=== PATIENT | male | born 1970 | race Caucasian/White ===

== ENCOUNTER 2016-10-05 23:14 | Inpatient (IN) | payer MEDICARE, OTHER ==
--- NOTE | ~2016-10-05 | HP ---
Unit #: [id number] #: [id number] Patient: DURGA HARO [id number] [place] [address] [id number] MR#: [id number] NAME: DURGA HARO ROOM: P185 Age: 46 Sex: M Admission Date: 10/05/2016 : 1970 Attending Physician: Angel Basurto M.D. Admitting Physician: Angel Basurto M.D. Primary Care Physician: Tia Caicedo A.P.R.N. HISTORY AND PHYSICAL HISTORY OF PRESENT ILLNESS Durga is a 46 year old admitted to [facility] because of his continued abuse of alcohol. He is detoxing. PAST MEDICAL HISTORY 1. Long history of alcohol abuse. 2. High blood pressure. 3. Diabetes mellitus. 4. History of withdrawal seizures. 5. GERD. PAST SURGICAL HISTORY Nothing reported. ALLERGIES No known drug allergies. SOCIAL HISTORY Smokes 1 pack per day. Drinks at least 3 pints to a fifth of liquor on a daily basis. Denies illicit drug use. FAMILY HISTORY Medically noncontributory. REVIEW OF SYSTEMS CONSTITUTIONAL: No fever or chills. HEENT: Denies any sore throat, ear pain or runny nose. CARDIOVASCULAR: Denies chest pain, irregular heart rhythm or palpitations. CHEST: Denies shortness of breath or cough. No hemoptysis. GASTROINTESTINAL: Denies nausea, vomiting, diarrhea or chronic constipation. ENDOCRINE: Denies history of increased thirst or urination. No recent significant weight loss or gain. GENITOURINARY: Denies dysuria, frequency, or hematuria. SKIN: Denies any rashes. HEMATOLOGIC: Denies history of increased bleeding or bruising. MUSCULOSKELETAL: Denies any hot, swollen joints. No generalized muscle pain. NEUROLOGIC: Denies problems with vision or speech. No frequent, severe headaches. No numbness, tingling or weakness in any extremities. Denies loss of bladder or bowel control. CURRENT MEDICATIONS Unit #: [id number] #: [id number] Patient: DURGA HARO 1. Detox protocol. 2. Zestril 10 mg daily. 3. Levemir 12 units q.h.s. 4. Seroquel 200 mg q.h.s. 5. Flexeril 5 mg b.i.d. 6. Lexapro 10 mg daily. 7. Neurontin 300 mg t.i.d. 8. Multivitamin 1 daily. 9. Nicotine patch 14 mg daily. PHYSICAL EXAMINATION GENERAL: Alert, well-nourished, in no apparent distress. VITAL SIGNS: Blood pressure 130/88, heart rate 80, respirations 16, temperature 98.6. WEIGHT: 205. HEIGHT: 6 feet 0 inches. SKIN: Warm and dry without rash or lesion. HEENT: Normocephalic. TMs not viewed. Oral and nasal passages clear. Conjunctivae clear. PERRLA. EOMs intact. NECK: Supple without lymphadenopathy or thyromegaly. HEART: Regular rate and rhythm without murmur. LUNGS: Clear. ABDOMEN: Soft, nontender. : Not done. EXTREMITIES: No evidence of cyanosis, clubbing or edema. Moves all without focal deficit. NEUROLOGICAL: Grossly within normal limits. Cranial Nerves: II: Visual perez are intact. III, IV AND : Extraocular movements are intact. Pupils are equal, round and reactive to light. V: Facial sensation is grossly normal. VII: Facial movements and expression are normal. VIII: Auditory acuity grossly intact. IX, X: Uvula is midline. Phonation is normal. XI: Patient shrugs shoulders and turns head normally. XII: Tongue protrudes in the midline. Sensory and Motor Function: Sensory and motor sensation is grossly normal. Motor: moves all extremities well. Coordination: Gait is normal. Deep Tendon Reflexes: Intact. IMPRESSION Psychiatric admission. RECOMMENDATIONS PSYCHIATRIC: Per psychiatrist. MEDICAL: See no contraindications to participate in facility's activities. MEDICAL PROGNOSIS Good. MEDICAL CONDITION Stable. Dictated by... Nadia Fischer P.A.-C. for Galo Pressley M.D. Unit #: [id number] #: [id number] Patient: DURGA HARO COLTON/hcencho TD: 10/07/2016 17:47 JOB #: [id number] HISTORY AND PHYSICAL X Nadia Fischer HISTORY AND PHYSICAL
--- NOTE | ~2016-10-05 | PN ---
Unit #: [id number] #: [id number] Patient: KEN HARO [id number] [facility] [address] [place] [address] [id number] I MR#: [id number] NAME: KEN HARO ROOM: [facility] Age: 46 Sex: M Admission Date: 10/05/2016 : 1970 Attending Physician: Angel Basurto M.D. Admitting Physician: Angel Basurto M.D. Primary Care Physician: Winston Cota PROGRESS NOTES DATE 10/10/2016 DISCUSSION The patient is calm and pleasant. He exhibits little in the way of signs or symptoms of withdrawal. Should he sustain progress, discharge will likely take place in the morning. He is thus far tolerating ReVia without complaint. Dictated by... Angel Basurto M.D. CB/carole TD: 10/10/2016 14:39 JOB #: [id number] TONY PROGRESS NOTES Page 1 of 1 X Angel Basurto MD PROGRESS NOTE
--- NOTE | ~2016-10-05 | PN ---
Unit #: [id number] #: [id number] Patient: KEN HARO [id number] [facility] [address] [place] [address] [id number] I MR#: [id number] NAME: KEN HARO ROOM: [facility] Age: 46 Sex: M Admission Date: 10/05/2016 : 1970 Attending Physician: Angel Basurto M.D. Admitting Physician: Angel Basurto M.D. Primary Care Physician: Winston Cota PROGRESS NOTES DATE 10/07/2016 DISCUSSION The patient continues to exhibit significant symptoms of alcohol withdrawal having exhibited a pulse of 118 and diastolic blood pressure of 109 and scoring a 10 on his CIWA at 12 noon today. We continue current treatment. Dictated by... Angel Basurto M.D. CB/chencho TD: 10/07/2016 15:24 JOB #: [id number] TONY PROGRESS NOTES X Angel Basurto MD PROGRESS NOTE
--- NOTE | ~2016-10-05 | PA ---
Unit #: [id number] #: [id number] Patient: KEN HARO [id number] [place] [address] [id number] I MR#: [id number] NAME: KEN HARO ROOM: [facility] Age: 46 Sex: M Admission Date: 10/05/2016 : 1970 Date of Assessment: 10/06/2016 Attending Physician: Angel Basurto M.D. Admitting Physician: Angel Basurto M.D. Primary Care Physician: Tia Caicedo A.P.R.N. PSYCHIATRIC ASSESSMENT IDENTIFYING INFORMATION The patient is a 46-year-old single white male well known to this physician from multiple previous admissions to this facility the last of which ended on 09/11/2016. The patient returns reporting recurrence of abuse of alcohol. CHIEF COMPLAINT None given. INFORMANT Patient, reliability is fair. HISTORY OF PRESENT ILLNESS The patient is a 46-year-old white male admitted after reporting that he has been consuming 4 pints of vodka on a daily basis. The patient's blood alcohol on admission was 0.348. The patient has a history of several previous admissions to this facility but has not complied with prescribed followup by intensive outpatient programming nor has he expressed interest in residential chemical dependence treatment. When seen today, the patient is sleeping soundly and cannot be aroused for interview. He has been placed on a routine detoxification protocol, and home medications have been restarted. For more complete history of present illness, please refer to previously dictated notes. PAST PSYCHIATRIC HISTORY Reviewed, no changes. PAST MEDICAL HISTORY Reviewed, no changes. PAST MEDICAL HISTORY Reviewed, no changes. MEDICATIONS Seroquel, gabapentin, Lexapro, and Levemir. ALLERGIES None. FAMILY HISTORY Reviewed, no changes. SOCIAL HISTORY Unit #: [id number] #: [id number] Patient: KEN HARO Reviewed, no changes. MENTAL STATUS EXAMINATION Examination at this time reveals the patient to be a soundly sleeping white male appearing his stated age. He cannot be aroused for interview. DIAGNOSTIC IMPRESSION 1. Alcohol use disorder. 2. Diabetes mellitus. 3. Hypertension. 4. History of pancreatitis. 5. History of alcohol withdrawal seizures. TREATMENT PLAN The patient remains hospitalized for safety and stabilization. Routine detoxification protocol has been ordered and suicide precautions are in place. The patient's home medications will be restarted. ESTIMATED LENGTH OF STAY 3 to 5 days. The followup will take place through the auspices of community mental health resources. Dictated by... Angel Basurto M.D. Tal TD: 10/07/2016 10:32 JOB #: [id number] PSYCHIATRIC ASSESSMENT X Angel Basurto MD X PSYCHIATRIC ASSESSMENT
--- NOTE | ~2016-10-05 | DS ---
Unit #: [id number] #: [id number] Patient: KEN HARO [id number] [place] [address] [id number] I MR#: [id number] NAME: KEN HARO ROOM: [facility] Age: 46 Sex: M Admission Date: 10/05/2016 : 1970 Discharge Date: 10/11/2016 Attending Physician: Angel Basurto M.D. Primary Care Physician: Tia Caicedo A.P.R.N. DISCHARGE SUMMARY REASON FOR ADMISSION The patient is a 46-year-old white male, admitted with increasing depression and alcohol abuse. HOSPITAL COURSE The patient was admitted to the [facility] and placed on routine detoxification protocol for alcohol. Home medications were continued and the patient was begun on ReVia 50 mg at h.s. given his wish to begin treatment with intramuscular depot naltrexone. The patient's detox was an uneventful one. He participated actively within therapeutic milieu and by 10/11/2016 was in bright spirits. He requested discharge on that date and it was so ordered. FINAL DIAGNOSES Alcohol use disorder; bipolar disorder, unspecified, most recent episode depressed; diabetes mellitus. DISPOSITION ON DISCHARGE The patient is discharged on the following medications; ReVia 50 mg at bedtime for alcohol craving, Levemir 12 units at bedtime for diabetic management, Seroquel 50 mg t.i.d. and 200 mg at h.s. for mood stabilization, Flexeril 5 mg b.i.d. for muscle relaxation, Zestril 10 mg once daily for hypertension, Lexapro 10 mg daily for depression, Neurontin 300 mg t.i.d. for anxiety. DISCHARGE INSTRUCTIONS No dietary or physical restrictions were placed upon the patient at the time of discharge. FOLLOWUP Followup will take place through the auspices of the chemical dependency intensive outpatient program provided by this facility and community mental health resources. PROGNOSIS The patient's prognosis is considered fair. Dictated by... Angel Basurto M.D. MARIA R/robbl Unit #: [id number] #: [id number] Patient: KEN HARO TD: 10/11/2016 23:11 JOB #: [id number] DISCHARGE SUMMARY Page 1 of 1 X Angel Basurto MD DISCHARGE SUMMARY
--- NOTE | ~2016-10-05 | PN ---
Unit #: [id number] #: [id number] Patient: KEN HARO [id number] [facility] [address] [place] [address] [id number] I MR#: [id number] NAME: KEN HARO ROOM: [facility] Age: 46 Sex: M Admission Date: 10/05/2016 : 1970 Attending Physician: Angel Basurto M.D. Admitting Physician: Angel Basurto M.D. Primary Care Physician: Winston Cota PROGRESS NOTES DATE 10/09/2016 DISCUSSION The patient offers no new complaints today. He is tolerating initiation of ReVia and hopes to begin withdrawal injections in the near future. We continue current treatment and expect the patient to be discharged within the next couple of days. Dictated by... Angel Basurto M.D. CB/rachael TD: 10/09/2016 18:11 JOB #: [id number] TONY PROGRESS NOTES Page 1 of 1 X Angel Basurto MD X PROGRESS NOTE
--- NOTE | ~2016-10-05 | CO ---
Unit #: [id number] #: [id number] Patient: KEN HARO [id number] [place] [address] [id number] I MR#: [id number] NAME: KEN HARO ROOM: [facility] Age: 46 Sex: M Admission Date: 10/05/2016 : 1970 Attending Physician: Angel Basurto M.D. Primary Care Physician: Tia Caicedo A.P.R.N. CONSULTATION REPORT REASON FOR CONSULT Evaluate insulin or to clarify insulin dosage. SUBJECTIVE "I've been diabetic for a long time. I take NovoLog sliding scale and Lantus 50 units daily." OBJECTIVE Vital signs within normal limits. Medications and labs reviewed. ASSESSMENT Insulin-dependent diabetes. No change needed in medication. PLAN Staff will contact Nadia Amado who clarified dosage of insulin yesterday at approximately 1700. They will contact her for further clarification if needed. Dictated by... Winston Rainey/chencho TD: 10/07/2016 18:56 JOB #: [id number] CONSULTATION REPORT X Swetha Day APR X CONSULTATION REPORT
--- NOTE | ~2016-10-05 | PN ---
Unit #: [id number] #: [id number] Patient: KEN HARO [id number] [facility] [address] [place] [address] [id number] MR#: [id number] NAME: KEN HARO ROOM: [facility] Age: 46 Sex: M Admission Date: 10/05/2016 : 1970 Attending Physician: Angel Basurto M.D. Admitting Physician: Angel Basurto M.D. Primary Care Physician: Winston Cota PROGRESS NOTES DATE 10/08/2016 DISCUSSION The patient is more active within the therapeutic milieu. He is today requesting initiation of naltrexone and we will begin ReVia 50 mg at h.s. as per his request. Dictated by... Angel Basurto M.D. CB/rachael TD: 10/08/2016 22:02 JOB #: [id number] TONY PROGRESS NOTES X Angel Basurto MD PROGRESS NOTE
[~2016-10-05 23:14] MED LIST: ALPRAZOLAM PO; ANXIETY MED; ATENOLOL PO; ATENOLOL50 MG PO; ATIVAN PO; ATIVAN0.5 MG PO; ATIVAN2 M1 PO; AUGMENTIN875 MG PO; BACTRIM DS TABL1 TA1 PO; BENTYL20 MG PO; BLOOD PRESSURE MED; BP MED; CARAFATE1 G PO; CELEXA PO; CLEOCIN HCL300 M1 PO; CLONIDINE PO; COLACE PO; DAKIN'S MODIF1000 ML EXT; DARVOCET-N 1001 TA2 PO; FAMOTIDINE; FAMOTIDINE PO; FLEXERIL PO; FLEXERIL10 MG PO; FOLIC ACID PO; HCTZ PO; HUMULOG INSULIN SQ; HYDROCODON-ACE1 EAC1 PO; HYDROCODONE-APA1 T41 PO; HYDROCODONE/TYLENOL PO; INSULIN FAST ACTING; K-DUR20 ME1 PO; KCL PO; KEFLEX500 M1 PO; KEFLEX500 MG PO; LAMICTAL25 MG PO; LANTUS INSULIN; LANTUS100 U/M1 SUBQ; LANTUS100 U/ML; LANTUS100 U/ML SUBQ; LEXAPRO PO; LIBRIUM25 M1 PO; LIBRIUM25 MG PO; LISINOPRIL PO; LISINOPRIL10 MG PO; LISINOPRIL5 MG PO; LOC PO; LORTAB 10/500 T1 TAB PO; LORTAB 5/500 TA1 TA1 PO; LORTAB 7.51 TAB PO; MEDROL DOSEPAK4 MG PO; METFORMIN HCL500 M1 PO; METFORMIN PO; METOPROLOL TAR25 MG PO; MILK OF MAGNESIA PO; MOTRIN400 MG PO; MULTI-VITAMIN1 TAB PO; NAPROSYN250 M1 PO; NASONEX17 GM; NEURONTIN PO; NEURONTIN300 MG PO; NORCO 10/325 TA1 TAB PO; NORFLEX100 M1 PO; NORVASC PO; NOVOLIN R100 UNITS/ INJ; PHENERGAN25 MG PO; PRILOSEC PO; PRILOSEC20 M1 PO; PRILOSEC40 MG PO; PRINIVIL40 MG PO; PROTONIX PO; PROZAC PO; REGLAN10 MG PO; RESTORIL15 MG PO; SEROQUEL25 MG PO; SUDAFED PO; TEMAZEPAM PO; THIAMINE HCL100 MG PO; TOPAMAX25 MG PO; TRICOR PO; ULTRAM PO; UNKNOWN MEDS; VICODIN 5/1 TAB 5/50 PO; VICODIN 5/500 T1 TAB PO; VOLTAREN75 MG PO; XANAX1 MG PO; ZANAFLEX4 M1 PO; ZANTAC150 MG PO; ZOLOFT PO; ZYRTEC PO; ZYVOX600 MG PO; [UNRECOGNIZED DRUG - REMARK]; oxycodone PO
== END 2016-10-11 14:35 | DRG 897 ==
LOC: P1E 23:14
PROC: HZ2ZZZZ Detoxification Services for Substance Abuse Treatment (ICD-10-PCS; principal; 2016-10-05)
DX: F10.20 Alcohol dependence, uncomplicated (principal); I10 Essential (primary) hypertension; E11.9 Type 2 diabetes mellitus without complications; F17.200 Nicotine dependence, unspecified, uncomplicated; Z79.4 Long term (current) use of insulin
CPT/HCPCS: 80307; 82947; 86592; 96372; 99285; G0480; J1815; J3486

== ENCOUNTER 2016-11-08 22:59 | Inpatient (IN) | payer MEDICARE, OTHER ==
--- NOTE | ~2016-11-08 | PN ---
Unit #: [id number] #: [id number] Patient: KEN HARO [id number] [facility] [address] [place] [address] [id number] I MR#: [id number] NAME: KEN HARO. ROOM: 82 Age: 46 Sex: M Admission Date: 11/08/2016 : 1970 Attending Physician: Angel Basurto M.D. Admitting Physician: Angel Basurto M.D. Primary Care Physician: Winston Cota PROGRESS NOTES DATE 11/12/2016 DISCUSSION The patient's detox continues uneventfully and he is expressing interest in participation in the intensive outpatient program once discharged. We will look to discharge the patient within the next couple of days if his detox continues uneventfully. Dictated by... Angel Basurto M.D. CB/jonathan TD: 11/12/2016 15:46 JOB #: [id number] TONY PROGRESS NOTES Page 1 of 1 X Angel Basurto MD X PROGRESS NOTE
--- NOTE | ~2016-11-08 | PA ---
Unit #: [id number] #: [id number] Patient: KEN HARO [id number] [place] [address] [id number] I MR#: [id number] NAME: KEN HARO. ROOM: [facility] Age: 46 Sex: M Admission Date: 11/08/2016 : 1970 Date of Assessment: 11/09/2016 Attending Physician: Angel Basurto M.D. Admitting Physician: Angel Basurto M.D. Primary Care Physician: Tia Caicedo A.P.R.N. PSYCHIATRIC ASSESSMENT IDENTIFYING INFORMATION The patient is a 46-year-old white male admitted to the [address] [place] [address] for alcohol detox. CHIEF COMPLAINT "I relapsed." INFORMANT(S) Patient, reliability is fair. HISTORY OF PRESENT ILLNESS The patient is a 46-year-old white male readmitted after once again relapsing on alcohol use. The patient had recently been participating in the intensive outpatient program but was discharged on 10/19/2016 after failing to show on several consecutive days. The patient reports that he had relapsed recently, and that this is crossing stress between him and his mother with whom he resides. The patient does report a history of withdrawal seizures. He does have a history of 2 previous suicide attempts per his report but denies current suicidal ideation. For more complete history of present illness, please refer to previously dictated notes. PAST PSYCHIATRIC HISTORY Reviewed, no changes. PAST MEDICAL HISTORY Reviewed, no changes. MEDICATIONS Seroquel, Neurontin, Lexapro, ReVia, Zestril, Flexeril, Levemir, and NovoLog. ALLERGIES None reported. FAMILY HISTORY Reviewed, no changes. SOCIAL HISTORY Reviewed, no changes. MENTAL STATUS EXAMINATION Examination at this time reveals the patient to be a well-developed well-nourished white male appearing stated age. He is in no apparent Unit #: [id number] #: [id number] Patient: KEN HARO physical distress at the time of examination. He is awake, alert, and oriented in all spheres. His mood is mildly dysphoric, his affect congruent. Speech is generally well-coherent. There are no gross deficits in memory or cognition noted. Intelligence is judged to be in the average range based on fund of knowledge. The patient is cooperative throughout the interview. He is currently denying suicidal or homicidal ideation or psychotic features. Judgment and insight appear to be reasonably intact. ASSETS AND LIABILITIES The patient's assets: Motivation for changes. Liabilities: Poor compliance for treatment. DIAGNOSTIC IMPRESSION 1. Alcohol use disorder. 2. Dysthymic disorder. 3. Diabetes mellitus. 4. Hypertension. TREATMENT PLAN The patient remains hospitalized for safety and stabilization. All prescribed home medications will be continued, and the patient will also be placed on routine detoxification protocol for alcohol as well as seizure precautions. ESTIMATED LENGTH OF STAY 3 to 5 days. Followup will take place through the auspices of community mental health resources. Dictated by... Angel Basurto M.D. MARIA R/carole TD: 11/09/2016 14:50 JOB #: [id number] PSYCHIATRIC ASSESSMENT Page 1 of 1 X Angel Basurto MD X PSYCHIATRIC ASSESSMENT
--- NOTE | ~2016-11-08 | PN ---
Unit #: [id number] #: [id number] Patient: KEN HARO [id number] [facility] [address] [place] [address] [id number] I MR#: [id number] NAME: KEN HARO. ROOM: [facility] Age: 46 Sex: M Admission Date: 11/08/2016 : 1970 Attending Physician: Angel Basurto M.D. Admitting Physician: Angel Basurto M.D. Primary Care Physician: Winston Cota PROGRESS NOTES DATE 11/11/2016 DISCUSSION The patient's med-seeking persists unabated. I have changed the parameters for his Ativan for objective ones only. We continue current treatment. Dictated by... Angel Basurto M.D. CB/kate TD: 11/11/2016 13:21 JOB #: [id number] TONY PROGRESS NOTES Page 1 of 1 X Angel Basurto MD X PROGRESS NOTE
--- NOTE | ~2016-11-08 | PN ---
Unit #: [id number] #: [id number] Patient: KEN HARO [id number] [facility] [address] [place] [address] [id number] I MR#: [id number] NAME: KEN HARO ROOM: [facility] Age: 46 Sex: M Admission Date: 11/08/2016 : 1970 Attending Physician: Angel Basurto M.D. Admitting Physician: Angel Basurto M.D. Primary Care Physician: Winston Cota PROGRESS NOTES DATE 11/10/2016 DISCUSSION The patient is abed today complaining of severe anxiety. I will add p.ralyx Davistaril but I have gently but firmly confronted the patient regarding his failure to comply with on unit activities and groups. Dictated by... Angel Basurto M.D. CB/chencho TD: 11/10/2016 17:38 JOB #: [id number] TONY PROGRESS NOTES Page 1 of 1 X Angel Basurto MD X PROGRESS NOTE
--- NOTE | ~2016-11-08 | CO ---
Unit #: [id number] #: [id number] Patient: KEN HARO [id number] [facility] [address] [place] [address] [id number] MR#: [id number] NAME: KEN HARO. ROOM: [facility] Age: 46 Sex: M Admission Date: 11/08/2016 : 1970 Attending Physician: Angel Basurto M.D. Primary Care Physician: Tia Caicedo A.P.R.N. Consultation Date: 11/11/2016 CONSULTATION REPORT ORDERING PROVIDER Dr. Basurto. REASON FOR CONSULTATION Diabetes. SUBJECTIVE He reports today with a critical blood sugar of 503. I went to [facility] and reviewed blood sugars, which averaged in the 300s for this patient. His home dose of basal insulin is 12 units. It was recently increased to 20. The blood sugars have remained high. He is also currently on sliding scale per protocol. I instructed the nursing staff to go ahead and give the patient 25 units of NovoLog, and we will increase his Levemir to 30 units daily. We will continue to monitor blood sugars. Dictated by... Winston Palomo/bri TD: 11/11/2016 18:01 JOB #: [id number] CONSULTATION REPORT Page 1 of 1 X MAE DURON APRN CONSULTATION REPORT
--- NOTE | ~2016-11-08 | HP ---
Unit #: [id number] #: [id number] Patient: DURGA HARO [id number] [place] [address] [id number] I MR#: [id number] NAME: DURGA HARO. ROOM: 82 Age: 46 Sex: M Admission Date: 11/08/2016 : 1970 Attending Physician: Angel Basurto M.D. Admitting Physician: Angel Basurto M.D. Primary Care Physician: Tia Caicedo A.P.R.N. HISTORY AND PHYSICAL HISTORY OF PRESENT ILLNESS Durga is a 46 year old admitted to [facility] because of his continued abuse of alcohol. He was just discharged from this facility. PAST MEDICAL HISTORY 1. Long history of alcohol abuse. 2. High blood pressure. 3. Diabetes mellitus. 4. History of withdrawal seizures. 5. GERD. PAST SURGICAL HISTORY Nothing reported. ALLERGIES No known drug allergies. SOCIAL HISTORY Smokes 1 pack per day. Drinks at least 3 pints to a fifth of liquor on a daily basis and denies illicit drug use. FAMILY HISTORY Medically noncontributory. REVIEW OF SYSTEMS CONSTITUTIONAL: No fever or chills. HEENT: Denies any sore throat, ear pain or runny nose. CARDIOVASCULAR: Denies chest pain, irregular heart rhythm or palpitations. CHEST: Denies shortness of breath or cough. No hemoptysis. GASTROINTESTINAL: Denies nausea, vomiting, diarrhea or chronic constipation. ENDOCRINE: Denies history of increased thirst or urination. No recent significant weight loss or gain. GENITOURINARY: Denies dysuria, frequency, or hematuria. SKIN: Denies any rashes. HEMATOLOGIC: Denies history of increased bleeding or bruising. MUSCULOSKELETAL: Denies any hot, swollen joints. No generalized muscle pain. NEUROLOGIC: Denies problems with vision or speech. No frequent, severe headaches. No numbness, tingling or weakness in any extremities. Denies loss of bladder or bowel control. CURRENT MEDICATIONS Unit #: [id number] #: [id number] Patient: DURGA HARO 1. Detox protocol. 2. ReVia 50 mg q.h.s. 3. Seroquel 200 mg q.h.s. 4. Lexapro 10 mg daily. 5. Zestril 10 mg daily. 6. Levemir 12 units q.h.s. PHYSICAL EXAMINATION GENERAL: Alert, well-nourished, in no apparent distress. VITAL SIGNS: Blood pressure 130/88, heart rate 80, respirations 16, temperature 98.6. WEIGHT: 206. HEIGHT: 6 feet 0 inches. SKIN: Warm and dry without rash or lesion. HEENT: Normocephalic. TMs not viewed. Oral and nasal passages clear. Conjunctivae clear. PERRLA. EOMs intact. NECK: Supple without lymphadenopathy or thyromegaly. HEART: Regular rate and rhythm without murmur. LUNGS: Clear. ABDOMEN: Soft, nontender. : Not done. EXTREMITIES: No evidence of cyanosis, clubbing or edema. Moves all without focal deficit. NEUROLOGICAL: Grossly within normal limits. Cranial Nerves: II: Visual perez are intact. III, IV AND : Extraocular movements are intact. Pupils are equal, round and reactive to light. V: Facial sensation is grossly normal. VII: Facial movements and expression are normal. VIII: Auditory acuity grossly intact. IX, X: Uvula is midline. Phonation is normal. XI: Patient shrugs shoulders and turns head normally. XII: Tongue protrudes in the midline. Sensory and Motor Function: Sensory and motor sensation is grossly normal. Motor: moves all extremities well. Coordination: Gait is normal. Deep Tendon Reflexes: Intact. IMPRESSION Psychiatric admission. RECOMMENDATIONS PSYCHIATRIC: Per psychiatrist. MEDICAL: See no contraindications to participate in facility's activities. MEDICAL PROGNOSIS Good. MEDICAL CONDITION Stable. Dictated by... Nadia Fischer P.A.-C. for Manuel Caraballo/chencho TD: 11/09/2016 19:48 Unit #: [id number] #: [id number] Patient: DURGA HARO JOB #: [id number] HISTORY AND PHYSICAL Page 1 of 1 X Nadia Fischer HISTORY AND PHYSICAL
--- NOTE | ~2016-11-08 | DS ---
Unit #: [id number] #: [id number] Patient: KEN HARO [id number] [place] [address] [id number] I MR#: [id number] NAME: KEN HARO. [facility] Age: 46 Sex: M Admission Date: 11/08/2016 : 1970 Discharge Date: 11/13/2016 Attending Physician: Angel Basurto M.D. Primary Care Physician: Tia Caicedo A.P.R.N. DISCHARGE SUMMARY REASON FOR ADMISSION The patient is a 46-year-old white male, admitted to the [facility] unit for alcohol detox. HOSPITAL COURSE The patient was admitted to the [facility] unit and placed on a routine detoxification protocol for alcohol. He was continued on the previously prescribed medications including Seroquel, Neurontin, Lexapro, ReVia, Zestril, Flexeril, Levemir, and NovoLog. The patient's stay in the hospital was a fairly uneventful one. His detox went smoothly and by 11/13/2016, the patient was in brighter spirits. He requested discharge and was agreeable with plan for followup in the intensive outpatient program. Discharge was ordered. FINAL DIAGNOSES Alcohol use disorder, dysthymic disorder, diabetes mellitus, hypertension. DISPOSITION ON DISCHARGE The patient is discharged on the following medications: Seroquel 50 mg t.i.d. and 200 mg at h.s. for mood stabilization, Neurontin 300 mg t.i.d. for mood stabilization, Lexapro 10 mg daily for depression, ReVia 50 mg at bedtime for alcohol craving, Zestril 10 mg once daily for hypertension, Flexeril 5 mg b.i.d. for muscle stiffness, NovoLog sliding scale for diabetic management, Vistaril 50 mg q.6 hours p.r.n. anxiety, and Levemir 30 units at bedtime for diabetic management. DISCHARGE INSTRUCTIONS No dietary or physical restrictions were placed upon the patient at the time of discharge. FOLLOWUP Followup will take place through the auspices of community mental health resources and the chemical dependency intensive outpatient program provided by this facility. PROGNOSIS The patient's prognosis is considered fair. Dictated by... Angel Basurto M.D. CB/modl Unit #: [id number] #: [id number] Patient: KEN HARO TD: 11/13/2016 17:51 JOB #: [id number] DISCHARGE SUMMARY Page 1 of 1 X Angel Basurto MD X DISCHARGE SUMMARY
[2016-11-09 13:04] LABS: THYROID STIMULATING HORMONE 1.74 uIU/ml (0.34-5.60)
[2016-11-09 13:11] LABS: FREE THYROXIN (T4) 0.88 ng/dL (0.58-1.64)
== END 2016-11-13 15:00 | disposition home or self-care (01) | DRG 897 ==
LOC: P1E 22:59
PROVIDERS: Specialist
PROC: HZ2ZZZZ Detoxification Services for Substance Abuse Treatment (ICD-10-PCS; principal; 2016-11-08)
DX: F10.10 Alcohol abuse, uncomplicated (principal); I10 Essential (primary) hypertension; F34.1 Dysthymic disorder; E11.9 Type 2 diabetes mellitus without complications; Z91.5 Personal history of self-harm; K21.9 Gastro-esophageal reflux disease without esophagitis; F17.210 Nicotine dependence, cigarettes, uncomplicated; Z79.4 Long term (current) use of insulin
CPT/HCPCS: 82947; 84439; 84443; 86592

== ENCOUNTER 2016-12-07 11:47 | Emergency (ER) | payer MEDICARE, OTHER ==
--- NOTE | ~2016-12-07 | US140 ---
[facility] A Service of [facility] RADIOLOGY TEXT RESULTS PATIENT: KEN HARO LOCATION: SED : 66 UNIT #: [id number] AGE: [address]: Pedro Luis Logan MD SEX: M ORDER DR: [id number] [place] [id number] E MR#: [id number] Acc #: [id number] NAME: KEN HARO : 1970 SEX: M STUDY DATE/TIME: 12/07/2016 12:23 UNIT: SED ROOM: STUDY DESCRIPTION: [facility] or [facility] Attending Physician: Pedro Luis Logan M.D. Ordering Physician: Pedro Luis Logan M.D. Primary Care Physician: Tia Caicedo A.P.R.N. MEDICAL IMAGING REPORT This report is preliminary unless electronic signature is present. EXAM Venous Doppler ultrasound examination, left upper extremity, 12/07/2016 HISTORY 46-year-old male in the ED complaining of 4-day history of left arm pain. TECHNIQUE Venous ultrasound examination of the left upper extremity was performed using grayscale, spectral Doppler and color flow Doppler imaging. FINDINGS The examination is negative. There is no evidence of deep venous thrombus within the left internal jugular vein, subclavian vein, axillary vein or brachial veins. No superficial venous thrombus is seen within the cephalic or basilic veins. IMPRESSION Negative examination. No evidence of left upper extremity venous thrombosis. Dictated by... Ran Louis M.D. THIS IS AN ELECTRONICALLY VERIFIED REPORT Ran Louis M.D. at 12/12/2016 1:47 PM FLORIDALMA/capo TD: 12/07/2016 13:00 JOB #: [id number] MEDICAL IMAGING REPORT [facility] A Service of [facility] RADIOLOGY TEXT RESULTS PATIENT: KEN HARO LOCATION: SED : [birth year] UNIT #: [id number] AGE: [address]: Pedro Luis Logan MD SEX: M ORDER DR: Page 1 of 1
--- NOTE | ~2016-12-07 | EKG ---
PATIENT: KEN HARO UNIT #: [id number] Ventricular Rate: 82 BPM Atrial Rate: 82 BPM P-R Interval: 156 ms QRS Duration: 100 ms Q-T Interval: 356 ms QTC Calculation(Bezet): 415 ms P Minto: 48 degrees Calculated R Minto: 51 degrees Calculated T Minto: 45 degrees Diagnosis Line: Normal sinus rhythm Diagnosis Line: Normal ECG Diagnosis Line: When compared with ECG of 28-APR-2016 20:57, Diagnosis Line: Vent. rate has decreased BY 41 BPM Diagnosis Line: Confirmed by CLEO CARSON MD ([id number]) on 12/07/2016 Diagnosis Line: 5:25:54 PM INTERPRETING MD: ALLI QUEVEDO
--- NOTE | ~2016-12-07 | CR156 ---
[facility] A Service of [facility] & [facility] RADIOLOGY TEXT RESULTS PATIENT: KEN HARO LOCATION: SED : [birth year] UNIT #: [id number] AGE: [address]: Pedro Luis Logan MD SEX: M ORDER DR: [id number] [place] [id number] E MR#: [id number] Acc #: [id number] NAME: KEN HARO : 1970 SEX: M STUDY DATE/TIME: 12/07/2016 12:51 UNIT: SED ROOM: STUDY DESCRIPTION: CR Humerus Min 2 View Lt Attending Physician: Pedro Luis Logan M.D. Ordering Physician: Pedro Luis Logan M.D. Primary Care Physician: Tia Caicedo A.P.R.N. MEDICAL IMAGING REPORT This report is preliminary unless electronic signature is present. EXAM Left humerus 12/07/2016 HISTORY 46-year-old male in the ED complaining of 3-day history of left arm pain. No reported acute injury. TECHNIQUE 2 view left humerus series. FINDINGS The examination is negative. No fracture or other osseous abnormality is demonstrated. IMPRESSION Negative left humerus. Dictated by... Ran Louis M.D. THIS IS AN ELECTRONICALLY VERIFIED REPORT Ran Louis M.D. at 12/07/2016 2:08 PM FLORIDALMA/fernando TD: 12/07/2016 13:19 JOB #: [id number] MEDICAL IMAGING REPORT Page 1 of 1
[2016-12-07 12:59] LABS: BASOPHIL# 0.1 X10e3 (0-0.3); BASOPHIL% 1.1 % (0-2.5); EOSINOPHIL# 0.2 X10e3 (0-0.7); EOSINOPHIL% 2.6 % (0.0-7.0); HEMATOCRIT 36.2 % (38.0-50.0); HEMOGLOBIN 12.2 gm/dL (13.0-16.0); LYMPHOCYTE# 1.2 X10e3 (1.0-3.5); LYMPHOCYTE% 20.6 % (17.0-45.0); MEAN CELL VOLUME 79.9 FL (83-96); MEAN CORPUSCULAR HEMOGLOBIN 26.9 PG (28-34); MEAN CORPUSCULAR HGB CONC 33.6 g/dL (30-36); MEAN PLATELET VOLUME 8.1 FL (6.5-11.5); MONOCYTE# 0.3 X10e3 (0-1.0); MONOCYTE% 4.6 % (3.0-12.0); NEUTROPHIL# 4.3 X10e3 (1.5-7.1); NEUTROPHIL% 71.1 % (40-75); PLATELET COUNT 251 X10e3 (140-420); RED BLOOD COUNT 4.53 X10e (3.90-5.60); RED CELL DISTRIBUTION WIDTH 20.6 % (11.0-15.5)
[2016-12-07 13:01] LABS: DIFF IND NO
[2016-12-07 13:14] LABS: POC - TROPONIN <0.05 ng/mL (<=0.05)
[2016-12-07 13:21] LABS: BUN/CREATININE RATIO 12.5; CREATININE SERUM 0.8 mg/dL (0.6-1.4); GLOM FILT RATE Estimated 105.7 mL/min (>60); POTASSIUM 3.6 mmol/L (3.5-5.1)
== END 2016-12-07 13:46 | disposition home or self-care (01) ==
LOC: SED 11:47
PROVIDERS: Emergency Medicine
DX: M79.602 Pain in left arm (principal); E11.65 Type 2 diabetes mellitus with hyperglycemia; I10 Essential (primary) hypertension; F17.210 Nicotine dependence, cigarettes, uncomplicated; Z91.14 Patient's other noncompliance with medication regimen; Z79.4 Long term (current) use of insulin; Z79.899 Other long term (current) drug therapy
CPT/HCPCS: 36415; 73060; 80048; 82553; 82947; 84484; 85025; 93005; 93971; 99284

== ENCOUNTER 2016-12-12 20:01 | Inpatient (IN) | payer MEDICARE, OTHER ==
--- NOTE | ~2016-12-12 | HP ---
Unit #: [id number] #: [id number] Patient: DURGA HARO [id number] [place] [address] [id number] I MR#: [id number] NAME: DURGA HARO. [facility] Age: 46 Sex: M Admission Date: 12/12/2016 : 1970 Attending Physician: Angel Basurto M.D. Admitting Physician: Angel Basurto M.D. Primary Care Physician: Tia Caicedo A.P.R.N. HISTORY AND PHYSICAL HISTORY OF PRESENT ILLNESS Durga is a 46 year old admitted to [facility] because of his continued abuse of alcohol. He has had other admissions to this facility. PAST MEDICAL HISTORY 1. Long history of alcohol abuse. 2. High blood pressure. 3. History of withdrawal seizures. 4. Diabetes mellitus. 5. GERD. PAST SURGICAL HISTORY Nothing reported. ALLERGIES No known drug allergies. SOCIAL HISTORY Smokes 1 pack per day. Drinks at least 3 pints to a fifth of liquor on a daily basis and denies illicit drug use. FAMILY HISTORY Medically noncontributory. REVIEW OF SYSTEMS CONSTITUTIONAL: No fever or chills. HEENT: Denies any sore throat, ear pain or runny nose. CARDIOVASCULAR: Denies chest pain, irregular heart rhythm or palpitations. CHEST: Denies shortness of breath or cough. No hemoptysis. GASTROINTESTINAL: Denies nausea, vomiting, diarrhea or chronic constipation. ENDOCRINE: Denies history of increased thirst or urination. No recent significant weight loss or gain. GENITOURINARY: Denies dysuria, frequency, or hematuria. SKIN: Denies any rashes. HEMATOLOGIC: Denies history of increased bleeding or bruising. MUSCULOSKELETAL: Denies any hot, swollen joints. No generalized muscle pain. NEUROLOGIC: Denies problems with vision or speech. No frequent, severe headaches. No numbness, tingling or weakness in any extremities. Denies loss of bladder or bowel control. CURRENT MEDICATIONS Unit #: [id number] #: [id number] Patient: DURGA HARO 1. Detox protocol. 2. Levemir 30 units q.h.s. 3. Flexeril 5 mg b.i.d. 4. Zestril 10 mg daily. 5. Lexapro 10 mg daily. PHYSICAL EXAMINATION GENERAL: Alert, well-nourished, in no apparent distress. VITAL SIGNS: Blood pressure 120/84, heart rate 80, respirations 16, temperature 98.6. WEIGHT: 205. HEIGHT: 6 feet 0 inches. SKIN: Warm and dry without rash or lesion. HEENT: Normocephalic. TMs not viewed. Oral and nasal passages clear. Conjunctivae clear. PERRLA. EOMs intact. NECK: Supple without lymphadenopathy or thyromegaly. HEART: Regular rate and rhythm without murmur. LUNGS: Clear. ABDOMEN: Soft, nontender. : Not done. EXTREMITIES: No evidence of cyanosis, clubbing or edema. Moves all without focal deficit. NEUROLOGICAL: Grossly within normal limits. Cranial Nerves: II: Visual perez are intact. III, IV AND : Extraocular movements are intact. Pupils are equal, round and reactive to light. V: Facial sensation is grossly normal. VII: Facial movements and expression are normal. VIII: Auditory acuity grossly intact. IX, X: Uvula is midline. Phonation is normal. XI: Patient shrugs shoulders and turns head normally. XII: Tongue protrudes in the midline. Sensory and Motor Function: Sensory and motor sensation is grossly normal. Motor: moves all extremities well. Coordination: Gait is normal. Deep Tendon Reflexes: Intact. IMPRESSION Psychiatric admission. RECOMMENDATIONS PSYCHIATRIC: Per psychiatrist. MEDICAL: See no contraindications to participate in facility's activities. MEDICAL PROGNOSIS Good. MEDICAL CONDITION Stable. Dictated by... Nadia Fischer P.A.-C. for Manuel Caraballo/chencho TD: 12/13/2016 18:12 Unit #: [id number] #: [id number] Patient: DURGA HARO JOB #: [id number] HISTORY AND PHYSICAL Page 1 of 1 X Nadia Fischer HISTORY AND PHYSICAL
--- NOTE | ~2016-12-12 | CO ---
Unit #: [id number] #: [id number] Patient: KEN HARO [id number] [place] [address] [id number] I MR#: [id number] NAME: KEN HARO. ROOM: [facility] Age: 46 Sex: M Admission Date: 12/12/2016 : 1970 Attending Physician: Angel Basurto M.D. Primary Care Physician: Tia Caicedo A.P.R.N. Consultation Date: 12/13/2016 CONSULTATION REPORT TUSHAR Calixto is a 46-year-old who lost his right great toenail weeks prior to this admission. The area has healed. We have been asked to assess and give recommendations. Right great toe with nail absent. The area is well healed. Neurovascular intact. No plans are need for Rx. The patient is also insulin-dependent diabetic. We will continue Levemir 30 units q.h.s. Routine sliding scale and monitor Accu-Cheks a.c. and h.s. Dictated by... Nadia Fischer P.A.-C. for Manuel Caraabllo/bri TD: 12/14/2016 21:12 JOB #: [id number] CONSULTATION REPORT Page 1 of 1 X Nadia Fischer CONSULTATION REPORT
--- NOTE | ~2016-12-12 | PA ---
Unit #: [id number] #: [id number] Patient: KEN HARO [id number] [place] [address] [id number] I MR#: [id number] NAME: KEN HARO. ROOM: [facility] Age: 46 Sex: M Admission Date: 12/12/2016 : 1970 Date of Assessment: 12/13/2016 Attending Physician: Angel Basurto M.D. Admitting Physician: Angel Basurto M.D. Primary Care Physician: Tia Caicedo A.P.R.N. PSYCHIATRIC ASSESSMENT IDENTIFYING INFORMATION The patient is a 46-year-old white male admitted to the [address] [place] [address] for alcohol detox. INFORMANT(S) Patient. RELIABILITY Good. CHIEF COMPLAINT Started drinking. HISTORY OF PRESENT ILLNESS The patient is a 46-year-old white male readmitted to the [address] [place] [address] for alcohol detox. The patient was discharged from this facility on 11/13/2016 but did not comply with this physician's recommendation that he participate in the intensive outpatient program and relapsed almost immediately upon his discharge from the hospital. He does not quantify his alcohol use during today's attempted interview. He is denying current suicidal or homicidal ideation and denies any psychotic symptoms. The patient does report a history of withdrawal seizures. For a more complete history of present illness, please refer to previous dictated notes. PAST PSYCHIATRIC HISTORY Reviewed, no changes. FAMILY HISTORY/SOCIAL HISTORY Reviewed, no changes. MEDICAL HISTORY Reviewed, no changes. MEDICATION HISTORY 1. Seroquel. 2. Neurontin. 3. Lexapro. 4. ReVia. 5. Zestril. 6. Flexeril. 7. Levemir. 8. NovoLog. Unit #: [id number] #: [id number] Patient: KEN HARO ALLERGIES None. MENTAL STATUS EXAM At this time, reveals the patient to be a well-developed, well-nourished white male appearing stated age. He is in no apparent physical distress at time of examination. He is awake, alert, oriented in all spheres. His mood is mildly dysphoric. His affect constricted. Speech is generally relevant and coherent. There are no gross deficits in memory or cognition noted. Intelligence is judged to be in the average range based on fund of knowledge. The patient is generally cooperative throughout the interview. He is currently reporting no suicidal/homicidal ideation or psychotic features. Judgement and insight appear to be at baseline. ASSETS AND LIABILITIES Patient's assets to be assessed. Liabilities, poor compliance with treatment. ADMITTING DIAGNOSES 1. Alcohol use disorder. 2. Dysthymic disorder. 3. Diabetes mellitus. 4. Hypertension. PSYCHIATRIC PLAN/TREATMENT GOALS The patient remains hospitalized for safety and stabilization. Routine detoxification protocol for alcohol has been initiated. The patient will participate in appropriate velez and milieu activities. DISCHARGE PLANNING Again, I have discussed with the patient the importance of compliance with aftercare during today's interview. ESTIMATED LENGTH OF STAY Three to five days. Dictated by... Angel Basurto M.D. MARIA R/chencho TD: 12/13/2016 16:27 JOB #: [id number] PSYCHIATRIC ASSESSMENT Page 1 of 1 X Angel Basurto MD X PSYCHIATRIC ASSESSMENT
--- NOTE | ~2016-12-12 | PN ---
Unit #: [id number] #: [id number] Patient: KEN HARO [id number] [facility] [address] [place] [address] [id number] I MR#: [id number] NAME: KEN HARO. ROOM: [facility] Age: 46 Sex: M Admission Date: 12/12/2016 : 1970 Attending Physician: Angel Basurto M.D. Admitting Physician: Angel Basurto M.D. Primary Care Physician: Winston Cota PROGRESS NOTES DATE 12/15/2016 DISCUSSION The patient continues to complain of some alcohol craving "the shakes." I will add Campral to his previously prescribed naltrexone in hopes of augmenting his pharmacologic regimen related to maintenance of sobriety. Dictated by... Angel Basurto M.D. CB/rachael TD: 12/16/2016 06:12 JOB #: [id number] TONY PROGRESS NOTES Page 1 of 1 X Angel Basurto MD X PROGRESS NOTE
--- NOTE | ~2016-12-12 | PN ---
Unit #: [id number] #: [id number] Patient: KEN HARO [id number] [facility] [address] [place] [address] [id number] I MR#: [id number] NAME: KEN HARO ROOM: [facility] Age: 46 Sex: M Admission Date: 12/12/2016 : 1970 Attending Physician: Angel Basurto M.D. Admitting Physician: Angel Basurto M.D. Primary Care Physician: Winston Cota PROGRESS NOTES DATE DISCUSSION The patient's detox is essentially complete at this point and we have discontinued Ativan much to the patient's ____(1). We are continuing current treatment and expect a.m. discharge with the patient to follow in the chemical dependence intensive outpatient program. Dictated by... Angel Basurto M.D. CB/rachael TD: 12/18/2016 02:57 JOB #: [id number] TONY PROGRESS NOTES Page 1 of 1 X Angel Basurto MD PROGRESS NOTE
--- NOTE | ~2016-12-12 | PN ---
Unit #: [id number] #: [id number] Patient: KEN HARO [id number] [facility] [address] [place] [address] [id number] I MR#: [id number] NAME: KEN HARO ROOM: [facility] Age: 46 Sex: M Admission Date: 12/12/2016 : 1970 Attending Physician: Angel Basurto M.D. Admitting Physician: Angel Basurto M.D. Primary Care Physician: Winston Cota PROGRESS NOTES DATE 12/14/2016 DISCUSSION The patient is resting comfortably today. His participation in the therapeutic milieu has been less than optimal. His detox continues uneventfully. Dictated by... Angel Basurto M.D. CB/bzg TD: 12/15/2016 07:35 JOB #: [id number] PEAGAYLA PROGRESS NOTES Page 1 of 1 X Angel Basurto MD X PROGRESS NOTE
--- NOTE | ~2016-12-12 | DS ---
Unit #: [id number] #: [id number] Patient: KEN HARO [id number] [facility] [address] [place] [address] [id number] I MR#: [id number] NAME: KEN HARO. ROOM: [facility] Age: 46 Sex: M Admission Date: 12/12/2016 : 1970 Discharge Date: 12/18/2016 Attending Physician: Angel Basurto M.D. Primary Care Physician: Tia Caicedo A.P.R.N. DISCHARGE SUMMARY REASON FOR ADMISSION The patient is a 46-year-old white male, admitted with recurrent abuse of alcohol. HOSPITAL COURSE The patient was admitted to the [facility] unit and placed on routine detoxification protocol for alcohol. He was continued on home medications and his diabetic management was handled by Internal Medicine. The patient's stay in the hospital was a reasonably uneventful one. His participation within the therapeutic milieu as always left much to be desired. The patient was started on Campral 333 mg during his stay in the hospital as he complained of ongoing anxiety and alcohol craving. By 12/18/2016, the patient's detox was complete and he requested discharge and it was so ordered. FINAL DIAGNOSES Alcohol use disorder and diabetes mellitus. DISPOSITION ON DISCHARGE The patient is discharged on the following medications; Campral 666 mg t.i.d. for alcohol craving and Levemir 30 mg at bedtime for diabetic management. DIET AND ACITIVITY No dietary or physical restrictions were placed upon the patient at the time of discharge. FOLLOWUP Followup will take place through the auspices of the intensive outpatient program provided by this facility. PROGNOSIS Given the patient's history of poor compliance with treatment, his prognosis remains guarded. Dictated by... Angel Basurto M.D. CB/bri TD: 12/18/2016 17:37 JOB #: [id number] Unit #: [id number] #: [id number] Patient: KEN HARO DISCHARGE SUMMARY Page 1 of 1 X Angel Basurto MD DISCHARGE SUMMARY
--- NOTE | ~2016-12-12 | PN ---
Unit #: [id number] #: [id number] Patient: KEN HARO [id number] [facility] [address] [place] [address] [id number] MR#: [id number] NAME: KEN HARO. ROOM: [facility] Age: 46 Sex: M Admission Date: 12/12/2016 : 1970 Attending Physician: Angel Basurto M.D. Admitting Physician: Angel Basurto M.D. Primary Care Physician: Winston Cota PROGRESS NOTES DATE 12/16/2016 DISCUSSION The importance of compliance with post-discharge chemical dependence intensive outpatient treatment is again stressed to the patient by this physician and staff today. He is continuing to complain of anxiety and has continued to score for Ativan. I have informed the patient that with the completion of his 5-day detox course, Ativan will be discontinued tomorrow, and he will need to look to start voluntarily reducing the amount of this medication he is taking. Dictated by... Angel Basurto M.D. CB/carole TD: 12/16/2016 14:36 JOB #: [id number] TONY PROGRESS NOTES Page 1 of 1 X Angel Basurto MD X PROGRESS NOTE
[2016-12-13 09:50] LABS: BASOPHIL# 0.1 X10e3 (0-0.3); BASOPHIL% 0.5 % (0-2.5); EOSINOPHIL# 0.4 X10e3 (0-0.7); EOSINOPHIL% 4.2 % (0.0-7.0); HEMATOCRIT 42.8 % (38.0-50.0); HEMOGLOBIN 14.3 gm/dL (13.0-16.0); LYMPHOCYTE# 2.2 X10e3 (1.0-3.5); MEAN CELL VOLUME 78.5 FL (83-96); MEAN CORPUSCULAR HEMOGLOBIN 26.3 PG (28-34); MEAN CORPUSCULAR HGB CONC 33.5 g/dL (30-36); MEAN PLATELET VOLUME 8.7 FL (6.5-11.5); MONOCYTE# 0.9 X10e3 (0-1.0); MONOCYTE% 9.7 % (3.0-12.0); NEUTROPHIL% 62.6 % (40-75); PLATELET COUNT 277 X10e3 (140-420); RED BLOOD COUNT 5.45 X10e (3.90-5.60); RED CELL DISTRIBUTION WIDTH 21.6 % (11.0-15.5); WHITE BLOOD COUNT 9.6 X10e3 (4.0-10.5)
[2016-12-13 10:05] LABS: URINE APPEARANCE CLEAR; URINE BILIRUBIN NEG (NEG); URINE BLOOD NEG (NEG); URINE COLOR YELLOW; URINE GLUCOSE >1000 MG/DL (NEG); URINE KETONE 1+ (NEG); URINE LEUKOCYTE ESTERASE NEG (NEG); URINE NITRATE NEG (NEG); URINE PH 5.5 (5-8); URINE PROTEIN TRACE (NEG); URINE SPECIFIC GRAVITY 1.046 (1.003-1.035); URINE UROBILINOGEN 0.2 MG/DL (NEG)
[2016-12-13 10:11] LABS: ALBUMIN SERUM 3.8 g/dL (3.5-5.0); BILIRUBIN,TOTAL 0.6 mg/dL (0.2-2.0); BUN/CREATININE RATIO 16.66; CALCIUM SERUM 9.1 mg/dL (8.4-10.2); CREATININE SERUM 0.9 mg/dL (0.6-1.4); GLOM FILT RATE Estimated 100.6 mL/min (>60); POTASSIUM 3.9 mmol/L (3.5-5.1); PROTEIN TOTAL SERUM 7.5 g/dL (6.0-8.3)
[2016-12-13 10:13] LABS: DIFF IND NO
[2016-12-13 10:16] LABS: THYROID STIMULATING HORMONE 1.82 uIU/ml (0.34-5.60)
[2016-12-13 10:22] LABS: FREE THYROXIN (T4) 0.95 ng/dL (0.58-1.64)
[2016-12-13 10:27] LABS: AMPHETAMINE NEG (NEG); BARBITURATES NEG (NEG); BENZODIAZEPINES NEG (NEG); COCAINE NEG (NEG); MARIJUANA NEG (NEG); OPIATES NEG (NEG); TRICYCLIC ANTIDEPRESSANTS POS (NEG); U METHADONE NEG (NEG)
== END 2016-12-18 11:45 | DRG 897 ==
LOC: P1E 22:16
PROVIDERS: Psychiatry & Neurology Psychiatry
PROC: HZ2ZZZZ Detoxification Services for Substance Abuse Treatment (ICD-10-PCS; principal; 2016-12-13)
DX: F10.10 Alcohol abuse, uncomplicated (principal); I10 Essential (primary) hypertension; E11.9 Type 2 diabetes mellitus without complications; K21.9 Gastro-esophageal reflux disease without esophagitis; F17.210 Nicotine dependence, cigarettes, uncomplicated; Z79.4 Long term (current) use of insulin
CPT/HCPCS: 80053; 80307; 81003; 82947; 83036; 84439; 84443; 85025; 86592

== ENCOUNTER 2016-12-27 10:00 | Inpatient (IN) | payer MEDICARE, OTHER ==
--- NOTE | ~2016-12-27 | DS ---
Unit #: [id number] #: [id number] Patient: KEN HARO [id number] [facility] [address] [place] [address] [id number] I MR#: [id number] NAME: KEN HARO. ROOM: [facility] Age: 46 Sex: M Admission Date: 12/27/2016 : 1970 Discharge Date: 12/30/2016 Attending Physician: Angel Basurto M.D. Primary Care Physician: Tia Caicedo A.P.R.N. DISCHARGE SUMMARY REASON FOR ADMISSION The patient is a 46-year-old white male, admitted to the [address] [place] [address] for alcohol detox. HOSPITAL COURSE The patient was admitted to the [address] [place] [address] and placed on routine detoxification protocol for alcohol. Home medications were continued. The patient's detox was an uneventful one, by 12/30, the patient was agreeable with plan for discharge and follow up will take place through the auspices of the chemical dependency intensive outpatient program. Discharge was ordered. DISCHARGE DIAGNOSES [place] I Alcohol use disorder. [place] II [place] III Diabetes mellitus. Hypertension. [place] IV [place] V DISPOSITION ON DISCHARGE The patient was discharged on the following medications: 1. Zestril 10 mg once daily for hypertension 2. Flexeril 5 mg daily p.r.n. stiffness 3. NovoLog sliding scale for diabetic management 4. Levemir 30 mg at bedtime for diabetic management PROGNOSIS The patient's prognosis is considered fair. DIET AND ACTIVITY No dietary or physical restrictions were placed on the patient at the time of discharge. Follow up will take place through the auspices of community mental health resources. Dictated by... Angel Basurto M.D. Unit #: [id number] #: [id number] Patient: KEN HARO MARIA R/brittnee TD: 01/01/2017 08:04 JOB #: [id number] DISCHARGE SUMMARY Page 1 of 1 X Angel Basurto MD X DISCHARGE SUMMARY
--- NOTE | ~2016-12-27 | HP ---
Unit #: [id number] #: [id number] Patient: DURGA HARO [id number] [facility] [address] [place] [address] [id number] I MR#: [id number] NAME: DURGA HARO. ROOM: [facility] Age: 46 Sex: M Admission Date: 12/27/2016 : 1970 Attending Physician: Angel Basurto M.D. Admitting Physician: Angel Basurto M.D. Primary Care Physician: Tia Caicedo A.P.R.N. HISTORY AND PHYSICAL Durga is a 46 year old admitted to [facility] because of his continued abuse of alcohol. He was just discharged from this facility after treatment for the same. Patient was seen and H and P dated 12/13/16 was reviewed. This is current. No changes. Please see H and P dated 12/13/16. Dictated by... Nadia Fischer P.A.-C. for Manuel Caraballo/chencho TD: 12/28/2016 16:34 JOB #: [id number] HISTORY AND PHYSICAL Page 1 of X Nadia Fischer HISTORY AND PHYSICAL
--- NOTE | ~2016-12-27 | PA ---
Unit #: [id number] #: [id number] Patient: KEN HARO [id number] [facility] [address] [place] [address] [id number] I MR#: [id number] NAME: KEN HARO. ROOM: [facility] Age: 46 Sex: M Admission Date: 12/27/2016 : 1970 Date of Assessment: 12/28/2016 Attending Physician: Angel Basurto M.D. Admitting Physician: Angel Basurto M.D. Primary Care Physician: Tia Caicedo A.P.R.N. PSYCHIATRIC ASSESSMENT REASON FOR ADMISSION The patient is a 46-year-old white male admitted to the [address] [place] [address] for alcohol detox. HISTORY OF PRESENT ILLNESS The patient is a 46-year-old single white male well-known to this physician from multiple previous admissions to this facility. He is admitted after presenting to this facility reporting recurrent abuse of alcohol. The patient was discharged on 12/17/2016 and was referred to the intensive outpatient program but did not comply with that programming and began drinking almost immediately upon discharge. His blood alcohol on admission was .247 and his pulse 121. The patient continues to report symptoms of alcohol withdrawal and expresses contrition that he could not follow up citing transportation issues as the reason that he could not come for programming. For more complete history of present illness, please refer to previous dictated notes. PAST PSYCHIATRIC HISTORY Reviewed, no changes. FAMILY HISTORY/SOCIAL HISTORY Reviewed, no changes. MEDICAL HISTORY Reviewed, no changes. MEDICATION HISTORY 1. Zestril. 2. Levemir. 3. Flexeril. 4. Campral. ALLERGIES None reported. MENTAL STATUS EXAM At this time, reveals the patient to be a well-developed, well-nourished white male appearing stated age. He is in no apparent physical distress at time of examination. He is awake, alert, oriented in all spheres. His mood is mildly dysphoric. His affect constricted. Speech is generally relevant and coherent. There are no gross deficits in memory or cognition noted. Intelligence is judged to be in the average range based on fund of knowledge. The patient is cooperative throughout the interview. He is currently denying suicidal or homicidal ideation or psychotic features. Unit #: [id number] #: [id number] Patient: KEN HARO Judgement and insight appear to be baseline. ASSETS AND LIABILITIES Assets to be assessed. Liabilities, lack of resources. ADMITTING DIAGNOSES 1. Alcohol use disorder. 2. Mood disorder, unspecified. 3. Diabetes mellitus. PSYCHIATRIC PLAN/TREATMENT GOALS The patient remains hospitalized for safety and stabilization. Routine detoxification protocol has been initiated. The patient will participate in appropriate velez and milieu activities. Again, the importance of compliance with outpatient care is stressed at some length with the patient during today's interview. ESTIMATED LENGTH OF STAY Three to five days. Dictated by... Angel Basurto M.D. MARIA R/chencho TD: 12/28/2016 15:58 JOB #: [id number] PSYCHIATRIC ASSESSMENT Page 1 of 1 X Angel Basurto MD PSYCHIATRIC ASSESSMENT
--- NOTE | ~2016-12-27 | PN ---
Unit #: [id number] #: [id number] Patient: KEN HARO [id number] [facility] [address] [place] [address] [id number] I MR#: [id number] NAME: KEN HARO ROOM: [facility] Age: 46 Sex: M Admission Date: 12/27/2016 : 1970 Attending Physician: Angel Basurto M.D. Admitting Physician: Angel Basurto M.D. Primary Care Physician: Winston Cota PROGRESS NOTES DATE 12/29/2016 DISCUSSION The patient remains tremulous and continues to complain of nausea. He is also reporting poor sleep. I will add melatonin 5 mg at h.s. continuing the patient's current alcoholic detoxification protocol. Dictated by... Angel Basurto M.D. MARIA R/chencho TD: 12/29/2016 17:04 JOB #: [id number] TONY PROGRESS NOTES Page 1 of 1 X Angel Basurto MD X PROGRESS NOTE
== END 2016-12-30 14:08 | disposition home or self-care (01) | DRG 897 ==
LOC: P1E 19:02 → UNDOADMIN 19:02 → P1E 21:06
PROC: HZ2ZZZZ Detoxification Services for Substance Abuse Treatment (ICD-10-PCS; principal; 2016-12-27)
DX: F10.20 Alcohol dependence, uncomplicated (principal); F39 Unspecified mood [affective] disorder; I10 Essential (primary) hypertension; E11.9 Type 2 diabetes mellitus without complications
CPT/HCPCS: 82947; 86592

== ENCOUNTER 2017-01-14 16:05 | Inpatient (IN) | payer MEDICARE, OTHER ==
--- NOTE | ~2017-01-14 | HP ---
Unit #: [id number] #: [id number] Patient: KEN HARO [id number] [address] [address] [id number] I MR#: [id number] NAME: KEN HARO. ROOM: [id number] Age: 46 Sex: M Admission Date: 01/14/2017 : 1970 Attending Physician: Betsy Joy M.D. Primary Care Physician: Tia Caicedo A.P.R.N. HISTORY AND PHYSICAL CHIEF COMPLAINT Alcohol abuse with alcohol withdrawal, anion gap metabolic acidosis, and uncontrolled diabetes mellitus. HISTORY OF PRESENT ILLNESS This 46-year-old male with AODM, hypertension, bipolar disorder, and alcohol abuse, is admitted for alcohol withdrawal. The patient states that he drinks three to four pints of vodka on a daily basis. His last drink was at 1 o'clock this afternoon. He developed hallucinations. He went to [facility] for detox. He was noted to be tachycardic with hyperglycemia and therefore was sent to this emergency department for clearance. In the ER, he is hypertensive and tachycardic. His initial serum glucose is 386. His sodium corrects to 126, and his anion gap is 21. In the ER, he was bolused with two liters of saline and given 100 mg of Librium and a GI cocktail with some improvement of his symptoms. PAST MEDICAL HISTORY 1. Hypertension. 2. Polysubstance abuse with previous history of pancreatitis. 3. Adult-onset diabetes mellitus for several years. 4. Chronic low back pain. 5. Gastroesophageal reflux disease with EGD in February 2010 revealing gastritis, esophagitis, and a small hiatal hernia. 6. Hyperlipidemia. 7. Bipolar disorder. 8. I and D of a thigh abscess. ALLERGIES None. HOME MEDICATIONS 1. Lantus 50 units subcutaneous at bedtime. 2. Sliding scale NovoLog. 3. Seroquel. Patient generally takes 150 mg at bedtime. 4. Lisinopril 10 mg daily. 5. Lexapro 10 mg daily. 6. Flexeril p.r.n. FAMILY HISTORY Malignancy, diabetes mellitus, and colon cancer. SOCIAL HISTORY Unit #: [id number] #: [id number] Patient: KEN HARO The patient lives with his mother. He smokes less than one-half pack per day of tobacco. He drinks three to four pints of vodka on a daily basis. Last drink was 1 p.m. this afternoon. He no longer uses drugs. REVIEW OF SYSTEMS Notable for hallucinations, alcohol abuse, hypertension, diabetes, back pain, acid reflux, hyperlipidemia, tobacco abuse, bipolar disorder, and thigh abscess. All other systems were reviewed and are otherwise negative. PHYSICAL EXAMINATION GENERAL: A pleasant 46-year-old male currently in no acute distress. VITAL SIGNS: Temperature 98.3, pulse initially 115, respirations 16, blood pressure 156/110, and O2 saturation is 99% on room air. HEENT: Eyes PERRLA. Extraocular muscles are intact. Pharynx is benign. NECK: Supple without adenopathy or thyromegaly. CHEST: Clear. CARDIAC: Tachy S1 and S2, without S3, S4, or murmur. ABDOMEN: Bowel sounds are present. Mild hepatomegaly noted on exam. No masses or tenderness. EXTREMITIES: Without edema. Pedal pulses are present. No ulcers on the feet. NEUROLOGIC: Patient is awake, alert, and oriented. He is picking at things a bit and is mildly tremulous. His cranial nerves are intact, and he has equal strength throughout. DIAGNOSTIC STUDIES LABORATORY: Hematocrit is 40.3 with normal white count and platelet count. SMA-12: Glucose is 386 and sodium 122 which corrects to 126, chloride 84, CO2 of 15 with an anion gap of 21, protein 8.7, AST 45, ALT 54, and alkaline phosphatase 108. Alcohol was 41. IMAGING: Chest x-ray no acute disease. CARDIOLOGY: EKG sinus tachycardia, rate 114. ASSESSMENT 1. Alcohol abuse with alcohol withdrawal. 2. High anion gap metabolic acidosis likely related to early diabetic ketoacidosis and alcohol abuse. 3. Bipolar disorder. 4. History of gastritis. 5. Hypertension. 6. Hyponatremia but sodium does correct to 126. PLANS 1. Benzodiazepines and vitamins. 2. IV fluids. 3. Obtain urine toxicology screen and urinalysis. 4. Will give a dose of NovoLog now for an Accu-Chek of 270. Repeat chemistries at midnight. If acidosis is not improving, will place on an insulin drip. Will order sliding scale insulin and Lantus for now. 5. SCDs for DVT prophylaxis. 6. H2 blockers for gastritis prophylaxis. 7. To [facility] when stable. 1. Dictated by Betsy Joy M.D. Unit #: [id number] #: [id number] Patient: KEN HARO AML/am TD: 01/14/2017 22:12 JOB #: [id number] HISTORY AND PHYSICAL Page 1 of 1 X Betsy Joy MD X HISTORY AND PHYSICAL
--- NOTE | ~2017-01-14 | DS ---
Unit #: [id number] #: [id number] Patient: KEN HARO [id number] [address] [address] [id number] I MR#: [id number] NAME: KEN HARO. ROOM: [facility] Age: 46 Sex: M Admission Date: 01/14/2017 : 1970 Discharge Date: 01/15/2017 Attending Physician: Goldie Pérez M.D. Primary Care Physician: Tia Caicedo A.P.R.N. DISCHARGE SUMMARY PRINCIPAL DIAGNOSES 1. Metabolic acidosis secondary to a combination of early diabetic ketoacidosis and alcohol induced metabolic acidosis. 2. Chronic alcohol abuse with acute withdrawal. 3. Hypertension. 4. Hyponatremia, hypovolemic, in combination with poor solute intake. 5. Bipolar disorder. 6. History of alcoholic gastritis. 7. Tobacco abuse. CONSULTANTS None. DIAGNOSTIC DATA IMAGING: Chest x-ray on 01/14/2017 without any acute findings. CLINICAL HISTORY/HOSPITAL COURSE Mr. Haro is a 46-year-old male transferred from [facility] due to abnormal blood work and hyperglycemia. Please refer to history and physical for further details. The patient was found to have a mild anion gap upon presentation her and was subsequently admitted. The patient was placed on IV fluids and started on a diet. With improvement in his blood sugar and some oral intake, his metabolic acidosis resolved. His sugars are now down to the 100s to 200s on a diet. He is medically stable for discharge. Again, the patient did present form [facility] after presenting there for chronic alcohol abuse. Will have them reevaluate for return to [facility]. DISCHARGE CONDITION Stable. DISPOSITION Discharge to [facility]. DISCHARGE MEDICATIONS 1. Lexapro 50 mg daily. 2. Zofran 4 mg p.o. q.6 h. p.r.n. nausea and vomiting. 3. Seroquel 150 mg at bedtime. 4. Nicotine patch 14 mg daily. 5. Librium 50 mg q.6 h. 6. Zestril 10 mg daily. Unit #: [id number] #: [id number] Patient: KEN HARO 7. Levemir 25 units subcutaneously b.i.d. Please note this is a substitution for Lantus 50 units subcutaneously at bedtime. 8. NovoLog medium dose sliding scale with meals. 9. Pepcid 20 mg b.i.d. 10. Daily multivitamin. 11. Thiamine 100 mg p.o. daily. DIET The patient is instructed to follow a constant carb diet. He will continue Accu-Cheks morning and evening. ACTIVITY He can increase his activity as tolerated. FOLLOWUP Follow up with primary care physician, Tia Caicedo, upon discharge [facility]. Dictated by... Goldie Pérez M.D. ROSALINE/yadi TD: 01/15/2017 13:53 JOB #: [id number] DISCHARGE SUMMARY Page 1 of 1 X Goldie Pérez MD X DISCHARGE SUMMARY
--- NOTE | ~2017-01-14 | CR72 ---
[facility] A Service of [facility] & [facility] RADIOLOGY TEXT RESULTS PATIENT: KEN HARO LOCATION: [facility] 305-01 : [birth year] UNIT #: [id number] AGE: [address]: Goldie Pérez MD SEX: M ORDER DR: [id number] [facility] [address]. [place], [place] [address] [id number] MR#: [id number] Acc #: [id number] NAME: KEN HARO. : 1970 SEX: M STUDY DATE/TIME: 01/14/2017 20:20 UNIT: [facility] ROOM: STUDY DESCRIPTION: CR Chest Single View Portable Attending Physician: Bob Ceron M.D. Ordering Physician: Bob Ceron M.D. Primary Care Physician: Tia Caicedo A.P.R.N. MEDICAL IMAGING REPORT This report is preliminary unless electronic signature is present EXAM Portable chest, 01/14/2017 HISTORY 46-year-old male with shortness of air for 1 day. Essential hypertension. COMPARISON Chest, 04/28/2016 FINDINGS Frontal chest demonstrates clear lungs. No pleural effusion or pneumothorax. Heart size and mediastinum are normal. Pulmonary vasculature normal. IMPRESSION No acute cardiopulmonary findings. Dictated by... Manny Hector M.D. THIS IS AN ELECTRONICALLY VERIFIED REPORT Manny Hector M.D. at 01/15/2017 10:25 AM GOLD/ksenia TD: 01/14/2017 21:37 JOB #: [id number] MEDICAL IMAGING REPORT Page 1 of 1 COPY
--- NOTE | ~2017-01-14 | EKG ---
PATIENT: KEN HARO UNIT #: [id number] Ventricular Rate: 114 BPM Atrial Rate: 114 BPM P-R Interval: 140 ms QRS Duration: 90 ms Q-T Interval: 308 ms QTC Calculation(Bezet): 424 ms P Cambridge: 42 degrees Calculated R Cambridge: 43 degrees Calculated T Cambridge: 52 degrees Diagnosis Line: Sinus tachycardia Diagnosis Line: Otherwise normal ECG Diagnosis Line: When compared with ECG of 07-DEC-2016 12:42, Diagnosis Line: No significant change was found Diagnosis Line: Confirmed by AKIL DAMIAN MD ([id number]) on Diagnosis Line: 01/14/2017 10:56:58 PM INTERPRETING MD: ANGELITO
[2017-01-14 17:27] LABS: POC - CKMB 14.1 ng/mL (0.0-7.9); POC - TROPONIN <0.05 ng/mL (<=0.05)
[2017-01-14 17:39] LABS: BASOPHIL# 0.1 X10e3 (0-0.3); BASOPHIL% 0.7 % (0-2.5); EOSINOPHIL% 0.1 % (0.0-7.0); HEMATOCRIT 40.3 % (38.0-50.0); HEMOGLOBIN 13.4 gm/dL (13.0-16.0); LYMPHOCYTE# 0.9 X10e3 (1.0-3.5); LYMPHOCYTE% 11.6 % (17.0-45.0); MEAN CELL VOLUME 81.6 FL (83-96); MEAN CORPUSCULAR HEMOGLOBIN 27.2 PG (28-34); MEAN CORPUSCULAR HGB CONC 33.3 g/dL (30-36); MEAN PLATELET VOLUME 8.2 FL (6.5-11.5); MONOCYTE# 0.5 X10e3 (0-1.0); MONOCYTE% 7.3 % (3.0-12.0); NEUTROPHIL% 80.3 % (40-75); PLATELET COUNT 272 X10e3 (140-420); RED BLOOD COUNT 4.94 X10e (3.90-5.60); RED CELL DISTRIBUTION WIDTH 18.5 % (11.0-15.5); WHITE BLOOD COUNT 7.5 X10e3 (4.0-10.5)
[2017-01-14 17:40] LABS: DIFF IND NO
[2017-01-14 18:06] LABS: ALBUMIN SERUM 4.6 g/dL (3.5-5.0); BILIRUBIN, DIRECT 0.1 mg/dL (0.0-0.2); BILIRUBIN,INDIRECT 1.1 mg/dL (0.0-0.9); BILIRUBIN,TOTAL 1.2 mg/dL (0.2-2.0); BUN/CREATININE RATIO 16.66; CALCIUM SERUM 9.3 mg/dL (8.4-10.2); CREATININE SERUM 0.9 mg/dL (0.6-1.4); GLOM FILT RATE Estimated 100.6 mL/min (>60); POTASSIUM 4.1 mmol/L (3.5-5.1); PROTEIN TOTAL SERUM 8.7 g/dL (6.0-8.3)
[2017-01-14] MEDS ORDERED: LANTUS100 U/ML SUBQ ×2 (18:12→22:11)
[2017-01-14] MEDS ORDERED: LEXAPRO5 MG PO (18:12)
[2017-01-14] MEDS ORDERED: LISINOPRIL10 MG PO ×2 (18:12→22:13)
[2017-01-14] MEDS ORDERED: NOVOLOG100 UNITS/ (18:13)
[2017-01-14] MEDS ORDERED: SEROQUEL50 M1 PO (18:13)
[2017-01-14] MEDS ORDERED: PATIENT'S PHARMACY (18:22)
[2017-01-14] MEDS ORDERED: THIAMINE HCL100 M2 IV (22:12)
[2017-01-14] MEDS ORDERED: M.V.I. ADULT10 ML PO (22:13)
[2017-01-14] MEDS ORDERED: LEXAPRO PO (22:14)
[2017-01-14] MEDS ORDERED: SEROQUEL XR150 MG PO (22:14)
[2017-01-14] MEDS ORDERED: ZOFRAN2 MG/1 ML IV (22:15)
[2017-01-14] MEDS ORDERED: PEPCID AC20 M2 PO (22:16)
[2017-01-14] MEDS ORDERED: LIBRIUM PO (22:16)
[2017-01-14 23:05] LABS: URINE SOURCE CLEAN CATCH
[2017-01-14 23:09] LABS: URINE APPEARANCE CLEAR; URINE BILIRUBIN NEG (NEG); URINE BLOOD TRACE (NEG); URINE COLOR YELLOW; URINE GLUCOSE >1000 MG/DL (NEG); URINE KETONE 3+ (NEG); URINE LEUKOCYTE ESTERASE NEG (NEG); URINE NITRATE NEG (NEG); URINE PH 5.5 (5-8); URINE PROTEIN TRACE (NEG); URINE SPECIFIC GRAVITY 1.019 (1.003-1.035); URINE UROBILINOGEN 0.2 MG/DL (NEG)
[2017-01-14 23:12] LABS: URBCS1 AUWI 0-2 /[HPF] (0-2); URINE BACTERIA AUWI NEG (NEGATIVE); URINE SQUAMOUS EPITHELIAL CELL NONE SEEN /[HPF]; UWBCS1 AUWI 0-2 (0-5)
[2017-01-14 23:26] LABS: AMPHETAMINE NEG (NEG); BARBITURATES NEG (NEG); BENZODIAZEPINES POS (NEG); COCAINE NEG (NEG); MARIJUANA NEG (NEG); OPIATES NEG (NEG); TRICYCLIC ANTIDEPRESSANTS POS (NEG); U METHADONE NEG (NEG)
[2017-01-15 01:39] LABS: BUN/CREATININE RATIO 16.25; CALCIUM SERUM 7.9 mg/dL (8.4-10.2); CREATININE SERUM 0.8 mg/dL (0.6-1.4); GLOM FILT RATE Estimated 105.7 mL/min (>60); MAGNESIUM 1.7 mg/dL (1.6-3.0); POTASSIUM 3.2 mmol/L (3.5-5.1)
[2017-01-15 06:36] LABS: HEMATOCRIT 37.4 % (38.0-50.0); HEMOGLOBIN 12.6 gm/dL (13.0-16.0); MEAN CELL VOLUME 80.3 FL (83-96); MEAN CORPUSCULAR HGB CONC 33.7 g/dL (30-36); MEAN PLATELET VOLUME 7.7 FL (6.5-11.5); RED BLOOD COUNT 4.66 X10e (3.90-5.60); RED CELL DISTRIBUTION WIDTH 18.6 % (11.0-15.5); WHITE BLOOD COUNT 5.3 X10e3 (4.0-10.5)
[2017-01-15 07:51] LABS: ALBUMIN SERUM 3.6 g/dL (3.5-5.0); BILIRUBIN,TOTAL 1.3 mg/dL (0.2-2.0); BUN/CREATININE RATIO 18.57; CALCIUM SERUM 8.4 mg/dL (8.4-10.2); CREATININE SERUM 0.7 mg/dL (0.6-1.4); GLOM FILT RATE Estimated 111.6 mL/min (>60); MAGNESIUM 1.9 mg/dL (1.6-3.0); POTASSIUM 3.7 mmol/L (3.5-5.1); PROTEIN TOTAL SERUM 6.7 g/dL (6.0-8.3)
== END 2017-01-16 04:19 | disposition other institution (70) | DRG 896 ==
LOC: CED 16:05 → CEDOF 21:45 → C3A PCU 21:45 → CED 21:51 → CEDOF 21:51 → C3A PCU 22:48
PROVIDERS: Emergency Medicine; Internal Medicine
DX: F10.239 Alcohol dependence with withdrawal, unspecified (principal); E13.10 Other specified diabetes mellitus with ketoacidosis without coma; E87.1 Hypo-osmolality and hyponatremia; I10 Essential (primary) hypertension; F31.9 Bipolar disorder, unspecified; F17.210 Nicotine dependence, cigarettes, uncomplicated; M54.9 Dorsalgia, unspecified; G89.29 Other chronic pain; K21.9 Gastro-esophageal reflux disease without esophagitis; K44.9 Diaphragmatic hernia without obstruction or gangrene; E78.5 Hyperlipidemia, unspecified; Y90.2 Blood alcohol level of 40-59 mg/100 ml
CPT/HCPCS: 36415; 71010; 80048; 80053; 80076; 80307; 81003; 82553; 82947; 83735; 84484; 85025; 85027; 87086; 93005; 96360; 96361; 99291; G0480; J1815; J2060; J2405; J3411

== ENCOUNTER 2017-01-15 13:00 | Inpatient (IN) | payer MEDICARE, OTHER ==
--- NOTE | ~2017-01-15 | DS ---
Unit #: [id number] #: [id number] Patient: KEN HARO [id number] [facility] [address] [place] [address] [id number] I MR#: [id number] NAME: KEN HARO. ROOM: P207 Age: 46 Sex: M Admission Date: 01/16/2017 : 1970 Discharge Date: 01/18/2017 Attending Physician: Uzair Beaver M.D. Primary Care Physician: Tia Caicedo A.P.R.N. DISCHARGE SUMMARY REASON FOR ADMISSION Mr. Haro was initially presented to this facility for alcohol dependence and was considered to be medically unstable and was sent out to [facility], where he was medically stabilized. He now returns for inpatient detox with further denial of suicidal ideation, intent, or plan. DIAGNOSTIC STUDIES LABORATORY RESULTS: Please see hospital chart. HOSPITAL COURSE Mr. Haro was admitted and placed on the alcohol detox protocol. He was irritable and somewhat uncooperative with the inpatient milieu, and the following day, he went to the nurses' station demanding discharge against medical advice. He was interviewed by staff and he continued to deny suicidal ideation and contracted for safety outside of the hospital. He was therefore discharged AMA at his request. DISCHARGE DIAGNOSES AXIS I: Alcohol dependence. AXIS II: No diagnosis. AXIS III: Hypertension, diabetes, gastroesophageal reflux disease, and history of withdrawal seizures. AXIS IV: AXIS V: DISCHARGE INSTRUCTIONS Follow up with primary care physician and CD programing of the patient's choice. DISCHARGE MEDICATIONS None. CONDITION AT DISCHARGE Fair. PROGNOSIS Fair. DIET AND ACTIVITY Ad dedra. Unit #: [id number] #: [id number] Patient: KEN HARO Dictated by... Uzair Beaver M.D. [facility]/bri TD: 02/02/2017 12:59 JOB #: [id number] DISCHARGE SUMMARY Page 1 of 1 X Uzair Beaver MD X DISCHARGE SUMMARY
--- NOTE | ~2017-01-15 | HP ---
Unit #: [id number] #: [id number] Patient: DURGA HARO [id number] [place] [address] [id number] I MR#: [id number] NAME: DURGA HARO. ROOM: [facility] Age: 46 Sex: M Admission Date: 01/16/2017 : 1970 Attending Physician: Uzair Beaver M.D. Admitting Physician: Uzair Beaver M.D. Primary Care Physician: Tia Caicedo A.P.R.N. HISTORY AND PHYSICAL HISTORY OF PRESENT ILLNESS Durga is a 46 year old admitted to [address] [place] [address] because of his continued abuse of alcohol. He has had numerous admissions to this facility for treatment of the same. PAST MEDICAL HISTORY 1. Long history of alcohol abuse. 2. High blood pressure. 3. History of withdrawal seizures. 4. Diabetes mellitus. 5. GERD. PAST SURGICAL HISTORY Nothing reported. ALLERGIES No known drug allergies. SOCIAL HISTORY Smokes 1 pack per day. Drinks at least 3 pints to a fifth of liquor on a daily basis. Denies illicit drug use. FAMILY HISTORY Medically noncontributory. REVIEW OF SYSTEMS CONSTITUTIONAL: No fever or chills. HEENT: Denies any sore throat, ear pain or runny nose. CARDIOVASCULAR: Denies chest pain, irregular heart rhythm or palpitations. CHEST: Denies shortness of breath or cough. No hemoptysis. GASTROINTESTINAL: Denies nausea, vomiting, diarrhea or chronic constipation. ENDOCRINE: Denies history of increased thirst or urination. No recent significant weight loss or gain. GENITOURINARY: Denies dysuria, frequency, or hematuria. SKIN: Denies any rashes. HEMATOLOGIC: Denies history of increased bleeding or bruising. MUSCULOSKELETAL: Denies any hot, swollen joints. No generalized muscle pain. NEUROLOGIC: Denies problems with vision or speech. No frequent, severe headaches. No numbness, tingling or weakness in any extremities. Denies loss of bladder or bowel control. Unit #: [id number] #: [id number] Patient: DURGA HARO CURRENT MEDICATIONS 1. Detox protocol. 2. Lexapro 10 mg daily. 3. Seroquel 100 mg q.h.s. 4. Levemir 30 units q.h.s. 5. NovoLog per sliding scale. 6. Zestril 10 mg daily. 7. Nicotine patch 14 mg daily. PHYSICAL EXAMINATION GENERAL: Alert, well-nourished, in no apparent distress. VITAL SIGNS: Blood pressure 130/76, heart rate 80, respirations 16, temperature 98.6. WEIGHT: 210. HEIGHT: 6 feet 0 inches. SKIN: Warm and dry without rash or lesion. HEENT: Normocephalic. TMs not viewed. Oral and nasal passages clear. Conjunctivae clear. PERRLA. EOMs intact. NECK: Supple without lymphadenopathy or thyromegaly. HEART: Regular rate and rhythm without murmur. LUNGS: Clear. ABDOMEN: Soft, nontender. : Not done. EXTREMITIES: No evidence of cyanosis, clubbing or edema. Moves all without focal deficit. NEUROLOGICAL: Grossly within normal limits. Cranial Nerves: II: Visual perez are intact. III, IV AND : Extraocular movements are intact. Pupils are equal, round and reactive to light. V: Facial sensation is grossly normal. VII: Facial movements and expression are normal. VIII: Auditory acuity grossly intact. IX, X: Uvula is midline. Phonation is normal. XI: Patient shrugs shoulders and turns head normally. XII: Tongue protrudes in the midline. Sensory and Motor Function: Sensory and motor sensation is grossly normal. Motor: moves all extremities well. Coordination: Gait is normal. Deep Tendon Reflexes: Intact. IMPRESSION Psychiatric admission. RECOMMENDATIONS PSYCHIATRIC: Per psychiatrist. MEDICAL: See no contraindications to participate in facility's activities. MEDICAL PROGNOSIS Good. MEDICAL CONDITION Stable. Dictated by... Nadia Fischer P.A.-C. for Manuel Caraballo/count includes the [facility] Unit #: [id number] #: [id number] Patient: DURGA HARO TD: 01/16/2017 18:25 JOB #: [id number] HISTORY AND PHYSICAL Page 1 of 1 X Nadia Fischer HISTORY AND PHYSICAL
--- NOTE | ~2017-01-15 | PA ---
Unit #: [id number] #: [id number] Patient: KEN HARO [id number] [facility] [address] [place] [address] [id number] I MR#: [id number] NAME: KEN HARO [facility]OM[facility] Age: 46 Sex: M Admission Date: 01/16/2017 : 1970 Date of Assessment: Attending Physician: Uzair Beaver M.D. Admitting Physician: Uzair Beaver M.D. Primary Care Physician: Tia Caicedo A.P.R.N. PSYCHIATRIC ASSESSMENT DATE OF SERVICE 01/17/2017. INFORMANTS The patient, reliable and OLOP, reliable. CHIEF COMPLAINT Alcohol dependence. HISTORY OF PRESENT ILLNESS Mr. Haro is a 46-year-old man, who initially presented here with complaints of auditory hallucinations and vague suicidal ideation due to alcohol use. He was admitted to [facility] and has now returned here for admission, now denying suicidal ideation, intent, or plan, but reporting ongoing problems with alcohol withdrawal. PAST PSYCHIATRIC HISTORY Multiple psychiatric admissions to this facility under the care of myself and other physicians. Please see previous assessments for details. FAMILY PSYCHIATRIC HISTORY Unchanged. SOCIAL HISTORY The patient denies any current social issues. Please see previous assessments for further details. PAST MEDICAL HISTORY Hypertension, diabetes, and chronic pain. MEDICATIONS Levemir, Flexeril, Zestril, and Campral. ALLERGIES No known medication allergies. SUBSTANCE USE HISTORY The patient has an extensive history of alcohol dependence. MENTAL STATUS EXAMINATION Mr. Haro presented as a mildly disheveled man, who appeared his stated age. He was irritable and uncooperative with the examination. His speech was spontaneous and easily understood. Musculoskeletal examination was Unit #: [id number] #: [id number] Patient: KEN HARO calm. His mood was irritable with a congruent affect. He was alert and fully oriented. Memory and concentration were fair. Thought processes were goal directed with no active psychosis. He denied suicidal ideation, intent, or plan. Insight and judgment, fair. Fund of knowledge and abstraction, fair. ASSETS AND LIABILITIES The patient knows local resources and has multiple admissions to this facility. Liabilities include frequent readmission and relapse. ADMITTING DIAGNOSES AXIS I: Alcohol dependence with withdrawal, uncomplicated. AXIS II: No diagnosis. AXIS III: Diabetes. AXIS IV: AXIS V: PSYCHIATRIC PLAN The patient was admitted and placed on the alcohol detox protocol. A physical examination and laboratory studies will be ordered and reviewed. TREATMENT GOALS Resolution of intoxication, improvement in insight, and improvement in coping skills. DISCHARGE PLANNING [facility]. ESTIMATED LENGTH OF STAY 5 days. Dictated by... Manuel King/bri TD: 02/02/2017 12:53 JOB #: [id number] PSYCHIATRIC ASSESSMENT Page 1 of 1 X Uzair Beaver MD X PSYCHIATRIC ASSESSMENT
[~2017-01-15 13:00] MED LIST changes: +LEXAPRO5 MG PO; +LIBRIUM PO; +M.V.I. ADULT10 ML PO; +NOVOLOG100 UNITS/; +PATIENT'S PHARMACY; +PEPCID AC20 M2 PO; +SEROQUEL XR150 MG PO; +SEROQUEL50 M1 PO; +THIAMINE HCL100 M2 IV; +ZOFRAN2 MG/1 ML IV
== END 2017-01-18 15:30 | disposition home or self-care (01) | DRG 897 ==
LOC: P2S 01-16 04:55
PROC: HZ2ZZZZ Detoxification Services for Substance Abuse Treatment (ICD-10-PCS; principal; 2017-01-16)
DX: F10.230 Alcohol dependence with withdrawal, uncomplicated (principal); F39 Unspecified mood [affective] disorder; I10 Essential (primary) hypertension; E11.9 Type 2 diabetes mellitus without complications; K21.9 Gastro-esophageal reflux disease without esophagitis; F17.210 Nicotine dependence, cigarettes, uncomplicated
CPT/HCPCS: 82947; 83036; 86592

== ENCOUNTER → 2017-01-29 | Outpatient (CLI) | payer MEDICARE, OTHER ==
--- NOTE | ~2017-01-29 | CR127 ---
[facility] A Service [facility] RADIOLOGY TEXT RESULTS PATIENT: EKN HARO LOCATION: [facility] : [birth year] UNIT #: [id number] AGE: [address]: Tia Caicedo SEX: M ORDER DR: [id number] [address] [address] [id number] MR#: [id number] Acc #: [id number] NAME: KEN HARO : 1970 SEX: M STUDY DATE/TIME: 01/29/2017 12:12 UNIT: [facility] ROOM: STUDY DESCRIPTION: CR Foot Complete Min 3 View Rt Attending Physician: Tia Caicedo A.P.R.N. Referring Physician: Tia Caicedo A.P.R.N. Ordering Physician: Tia Caicedo A.P.R.N. Primary Care Physician: Tia Caicedo A.P.R.N. MEDICAL IMAGING REPORT This report is preliminary unless electronic signature is present. EXAM Right foot HISTORY Pain and redness over the past month. Pain is worse when walking. TECHNIQUE 4 views of the right foot were obtained. FINDINGS Advanced degenerative changes are seen at the first MTP joint with joint space collapse. There is erosion seen along the lateral aspect of this joint accompanied by bulky calcifications. This is suggestive of gout or pseudogout. The other joint spaces of the foot are preserved. No acute fractures or destructive bone lesions are noted. No radiodense foreign bodies are seen. IMPRESSION Advanced degenerative changes first MTP joint with erosion and soft tissue calcification adjacent to the erosions. Findings suggest gout. Dictated by... Osvaldo Anderson M.D. THIS IS AN ELECTRONICALLY VERIFIED REPORT Osvaldo Anderson M.D. at 01/30/2017 4:55 PM Hans TD: 01/30/2017 14:37 JOB #: [id number] MEDICAL IMAGING REPORT [facility] A Service [facility] RADIOLOGY TEXT RESULTS PATIENT: KEN HARO LOCATION: [facility] : [birth year] UNIT #: [id number] AGE: [address]: Tia Caicedo SEX: M ORDER DR: Page 1 of 1
== END | disposition home or self-care (01) ==
LOC: SRAD 11:52
DX: M79.671 Pain in right foot (principal); M19.071 Primary osteoarthritis, right ankle and foot
CPT/HCPCS: 73630

== ENCOUNTER 2017-02-13 15:41 | Emergency (ER) | payer MEDICARE ==
--- NOTE | ~2017-02-13 | CR72 ---
[facility]. [facility] A Service of [facility] & [facility] RADIOLOGY TEXT RESULTS PATIENT: KEN HARO LOCATION: SED : 66 UNIT #: [id number] AGE: [address]: PRISCILLA BASHIR SEX: M ORDER DR: [id number] [place] [id number] E MR#: [id number] Acc #: [id number] NAME: KEN HARO : 1970 SEX: M STUDY DATE/TIME: 02/13/2017 16:22 UNIT: SED ROOM: STUDY DESCRIPTION: CR Chest Single View Portable Attending Physician: Priscilla Bashir Aprn Ordering Physician: Priscilla Bashir Aprn Primary Care Physician: Tia Caicedo A.P.R.N. MEDICAL IMAGING REPORT This report is preliminary unless electronic signature is present. EXAM Portable chest HISTORY Left hand numbness with back and chest pain just prior to arrival TECHNIQUE Single view chest was obtained compared with 01/14/2017 FINDINGS A single AP portable view of the chest shows both lungs to be clear. The heart is normal in size. The mediastinal contour is normal. No significant bone abnormalities are seen. IMPRESSION Normal portable chest. Dictated by... Osvaldo Anderson M.D. THIS IS AN ELECTRONICALLY VERIFIED REPORT Osvaldo Anderson M.D. at 02/14/2017 6:59 AM RADHA/charity TD: 02/14/2017 02:45 JOB #: [id number] MEDICAL IMAGING REPORT Page 1 of 1
--- NOTE | ~2017-02-13 | CT4 ---
[facility] A Service of [facility] & [facility] RADIOLOGY TEXT RESULTS PATIENT: KEN HARO LOCATION: SED : 66 UNIT #: [id number] AGE: [address]: PRISCILLA BASHIR SEX: M ORDER DR: [id number] [place] [id number] E MR#: [id number] Acc #: [id number] NAME: KEN HARO : 1970 SEX: M STUDY DATE/TIME: 02/13/2017 18:56 UNIT: SED ROOM: STUDY DESCRIPTION: CT Abd and Pelv Wo Cont Attending Physician: Priscilla Bashir Aprn Ordering Physician: Priscilla Bashir Aprn Primary Care Physician: Tia Caicedo A.P.R.N. MEDICAL IMAGING REPORT This report is preliminary unless electronic signature is present. EXAM CT abdomen and pelvis without HISTORY Diabetic, complains of vomiting, elevated white blood cell count. Patient is not responding to questions so no additional history can be obtained from the patient. He is presenting to the ER, presumably acutely. Patient has a history of pancreatitis and daily alcohol use. COMMENT CT of the abdomen and pelvis performed without IV or oral contrast media using urinary tract stone protocol. Lack of intravenous and oral contrast media limits evaluation for pathology other than urinary tract calculus disease. This CT exam was performed with one or more of the following radiation dose reduction techniques: automatic control, adjustment of mA and/or kV according to patient size, and iterative reconstruction. Comparison is from 07/02/2016. There is a stable noncalcified nodule in the right middle lobe peripherally about 7 cm in dimension. No additional follow-up is necessary. Given stability since 2012. CT ABDOMEN: There is severe diffuse fatty infiltration of the liver. This was present previously. The esophagus appears to be distally thickened. This is best assessed further with direct visualization. This could be due to esophagitis but other forms of mucosal pathology in the differential. This is also noted previously but it might be worse. The gallbladder is unremarkable. The spleen shows granulomata. Stomach is distended with fluid. The adrenal glands are unremarkable. There is a 2-3 mm calculus in the lower pole right kidney nonobstructing. Mild fullness of the left renal collecting system but no hydronephrosis. There is motion limitation of the study also. There is no abdominal aortic aneurysm though there is mild vascular calcification. There is somewhat atrophic appearance to the STS. [facility] A Service of [facility] & [facility] RADIOLOGY TEXT RESULTS PATIENT: KEN HARO LOCATION: SED : 66 UNIT #: [id number] AGE: [address]: PRISCILLA BASHIR SEX: M ORDER DR: pancreas. There is subtle stranding adjacent to the proximal pancreas which is very nonspecific. Please correlate for any clinical evidence of pancreatitis. There is no drainable fluid collection. Assessment of the pelvis shows show fat-containing inguinal hernias. The urinary bladder is unremarkable. Stool is at the level of the rectum. There is too much breathing motion in the right lower quadrant to evaluate accurately for appendicitis. No gross free intraperitoneal air again allowing for the motion. Nothing to suggest bowel obstruction. Some degenerative changes at the lower thoracic spine. IMPRESSION 1. Study is performed as a urinary tract stone protocol and this limits evaluation for pathology other than urinary tract calculus disease. 2. Severe diffuse fatty infiltration of liver is redemonstrated. 3. Tiny nonobstructing calculus right kidney. No obstructing urinary tract calculus seen. 4. There is breathing motion on the images that include the right lower quadrant and for this reason the study is nondiagnostic for assessment for appendicitis. There is nothing to suggest bowel obstruction. There is no gross free air or drainable fluid collection appreciated. 5. Pancreas is fairly atrophic for age group. There is some subtle stranding in the fat adjacent to the pancreas which is very nonspecific and could be related to current or prior episodes of pancreatitis. There is nothing to suggest a drainable peripancreatic fluid collection. 6. The stomach is distended with fluid. There is also apparently thickening of the wall of the distal esophagus. This could reflect reflux esophagitis but other mucosal pathology in the differential and this is best assessed with direct visualization. Please correlate for clinical evidence of gastroparesis given the amount of gastric distention with fluid. STAT * RESULT Dictated by... Shira Charles M.D. THIS IS AN ELECTRONICALLY VERIFIED REPORT Shira Charles M.D. at 02/13/2017 11:46 PM SAC/rnr [facility]. [facility] A Service of [facility] & [facility] RADIOLOGY TEXT RESULTS PATIENT: KEN HARO LOCATION: [facility] : [birth year] UNIT #: [id number] AGE: [address]: PRISCILLA BASHIR SEX: M ORDER DR: TD: 02/13/2017 19:47 JOB #: [id number] MEDICAL IMAGING REPORT Page 1 of 1
--- NOTE | ~2017-02-13 | EKG ---
PATIENT: KEN HARO UNIT #: [id number] Ventricular Rate: 125 BPM Atrial Rate: 125 BPM P-R Interval: 132 ms QRS Duration: 86 ms Q-T Interval: 332 ms QTC Calculation(Bezet): 479 ms P Clinton: 56 degrees Calculated R Clinton: 49 degrees Calculated T Clinton: 56 degrees Diagnosis Line: Sinus tachycardia Diagnosis Line: Possible Left atrial enlargement Diagnosis Line: Borderline ECG Diagnosis Line: When compared with ECG of 14-JAN-2017 16:55, Diagnosis Line: T wave amplitude has increased in Anterolateral Diagnosis Line: leads Diagnosis Line: Confirmed by NELIDA STONE MD ([id number]) on Diagnosis Line: 02/14/2017 2:33:55 PM INTERPRETING MD: CHASE QUEVEDO
[2017-02-13 16:41] LABS: BASOPHIL# 0.1 X10e3 (0-0.3); BASOPHIL% 0.6 % (0-2.5); HEMATOCRIT 46.2 % (38.0-50.0); HEMOGLOBIN 15.2 gm/dL (13.0-16.0); LYMPHOCYTE# 1.2 X10e3 (1.0-3.5); LYMPHOCYTE% 5.4 % (17.0-45.0); MEAN CELL VOLUME 83.9 FL (83-96); MEAN CORPUSCULAR HEMOGLOBIN 27.7 PG (28-34); MEAN PLATELET VOLUME 8.4 FL (6.5-11.5); MONOCYTE# 1.3 X10e3 (0-1.0); MONOCYTE% 6.1 % (3.0-12.0); NEUTROPHIL# 18.8 X10e3 (1.5-7.1); NEUTROPHIL% 87.9 % (40-75); PLATELET COUNT 469 X10e3 (140-420); RED BLOOD COUNT 5.51 X10e (3.90-5.60); WHITE BLOOD COUNT 21.4 X10e3 (4.0-10.5)
[2017-02-13 16:51] LABS: DIFF IND YES
[2017-02-13 16:56] LABS: POC - CKMB 9.6 ng/mL (0.0-7.9)
[2017-02-13 16:57] LABS: POC - TROPONIN <0.05 ng/mL (<=0.05)
[2017-02-13 17:07] LABS: ANISOCYTOSIS MOD; PLATELET ESTIMATE INCREASED (NORMAL)
[2017-02-13 18:14] LABS: URINE SOURCE CLEAN CATCH
[2017-02-13 18:16] LABS: URINE APPEARANCE CLEAR; URINE BILIRUBIN NEG (NEG); URINE BLOOD 2+ (NEG); URINE COLOR YELLOW; URINE GLUCOSE 300 MG/DL (NORM); URINE LEUKOCYTE ESTERASE NEG (NEG); URINE NITRATE NEG (NEG); URINE PH 5.5 (5-8); URINE PROTEIN 2+ (NEG); URINE SPECIFIC GRAVITY >=1.030 (1.003-1.035); URINE UROBILINOGEN 0.2 MG/DL (NORM)
[2017-02-13 18:17] LABS: MICRO INDICATED? YES; URINE KETONE 2+ (NEG)
[2017-02-13 18:21] LABS: CULTURE INDICATED? YES; URINE BACTERIA 1+ (NEG); URINE MUCUS PRESENT; URINE SQUAMOUS EPITHELIAL CELL FEW /[HPF]
[2017-02-13 18:42] LABS: POC - CKMB 7.4 ng/mL (0.0-7.9); POC - TROPONIN <0.05 ng/mL (<=0.05)
[2017-02-13 18:53] LABS: ALBUMIN SERUM 4.3 g/dL (3.5-5.0); ALKALINE PHOSPHATASE 117 U/L (32-92); ALT (SGPT) 57 U/L (10-40); AST (SGOT) 72 U/L (10-42); BILIRUBIN, DIRECT <0.1 mg/dL (0.0-0.2); BILIRUBIN,INDIRECT 0.6 mg/dL (0.0-0.9); BILIRUBIN,TOTAL 0.7 mg/dL (0.2-2.0); BLOOD UREA NITROGEN 20 mg/dL (9-23); BUN/CREATININE RATIO 16.66; CALCIUM SERUM 8.4 mg/dL (8.4-10.2); CARBON DIOXIDE 14 mmol/L (22-31); CHLORIDE 90 mmol/L (100-111); CREATININE SERUM 1.2 mg/dL (0.6-1.4); GLOM FILT RATE Estimated 71.1 mL/min (>60); GLUCOSE FASTING 368 mg/dL (70-110); LIPASE 47 U/L (22-51); POTASSIUM 4.8 mmol/L (3.5-5.1); PROTEIN TOTAL SERUM 8.4 g/dL (6.0-8.3); SODIUM 131 mmol/L (135-145)
== END 2017-02-14 02:42 ==
LOC: SED 15:41
PROVIDERS: Nurse Practitioner Family
DX: K85.90 Acute pancreatitis without necrosis or infection, unspecified (principal); E87.2 Acidosis; F10.239 Alcohol dependence with withdrawal, unspecified; I10 Essential (primary) hypertension; E11.9 Type 2 diabetes mellitus without complications; F17.200 Nicotine dependence, unspecified, uncomplicated; Z79.899 Other long term (current) drug therapy
CPT/HCPCS: 36415; 71010; 74176; 80048; 80076; 81003; 82150; 82553; 82947; 83690; 84484; 85025; 87086; 93005; 96361; 96365; 96375; 96376; 99285; C9113; G0480; J0780; J1200; J2060; J2270; J2405; J3411

== ENCOUNTER 2017-03-23 21:16 | Emergency (ER) | payer MEDICARE ==
[~2017-03-23] VITALS: Ht 182.9 cm; Wt 95.3 kg
--- NOTE | ~2017-03-23 | CT71 ---
[facility] A Service [facility] RADIOLOGY TEXT RESULTS PATIENT: KEN HARO LOCATION: SED : [birth year] UNIT #: [id number] AGE: [address]: Geoffrey Davey MD SEX: M ORDER DR: [id number] [place] [id number] E MR#: [id number] Acc #: [id number] NAME: KEN HARO. : 1970 SEX: M STUDY DATE/TIME: 03/23/2017 22:17 UNIT: SED ROOM: STUDY DESCRIPTION: CT Head Wo Contrast Attending Physician: Geoffrey Davey M.D. Ordering Physician: Geoffrey Davey M.D. Primary Care Physician: Tia Caicedo A.P.R.N. MEDICAL IMAGING REPORT This report is preliminary unless electronic signature is present. EXAM Head CT no contrast 03/23/2017 INDICATIONS 46-year-old male with a frontal headache, hypertension since 1800 hours. Hepatitis C. Alcohol abuse. TECHNIQUE Noncontrast CT of the brain was performed. This CT exam was performed with one or more of the following radiation dose reduction techniques: automatic exposure control, adjustment of mA and/or kV according to patient size, and iterative reconstruction. COMPARISON 04/28/[address] brain: There is a chronic-appearing infarct in the left frontal lobe. There is associated encephalomalacic change. Sulci and ventricles otherwise unremarkable. No midline shift. No evidence of acute intracranial hemorrhage. There is no mass, mass effect or edema to suggest acute infarct and no extraaxial fluid collections are present. Globes intact. Bones intact. Sinuses clear. 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 No clearly acute intracranial process. No evidence of acute intracranial hemorrhage. Dictated by... Peter Salter M.D. [facility] A Service of [facility] RADIOLOGY TEXT RESULTS PATIENT: KEN HARO LOCATION: SED : [birth year] UNIT #: [id number] AGE: [address]: Geoffrey Davey MD SEX: M ORDER DR: THIS IS AN ELECTRONICALLY VERIFIED REPORT Peter Salter M.D. at 03/24/2017 9:29 PM MELI/jonathan TD: 03/24/2017 17:19 JOB #: [id number] MEDICAL IMAGING REPORT Page 1 of 1
== END 2017-03-23 22:55 | disposition home or self-care (01) ==
LOC: SED 21:16
DX: R51 Headache (principal); F17.200 Nicotine dependence, unspecified, uncomplicated; Z98.890 Other specified postprocedural states; Z79.899 Other long term (current) drug therapy
CPT/HCPCS: 70450; 96372; 99284; J1885